=== PATIENT | male | born 1930 | race Caucasian/White ===

== ENCOUNTER 2016-08-06 09:53 | Inpatient (IN) | payer MEDICARE, OTHER ==
[~2016-08-06] VITALS: Ht 180.3 cm; Wt 61.0 kg
[~2016-08-06 09:53] MED LIST: ASPI325T4 PO; ATOR10TA60 PO; BUDE10.2 IH; CARV3.122 PO; DOCU100C5 PO; DUTA0.5C PO; ERGO500012 PO; FINA5TAB4 PO; FLUT16SP; HYDR-2678 PO; IPRA3AMP NEB; LEVO500T38 PO; LISI2.5T PO; MULT-658 PO; OMEG1CAP38 PO; PRED-220 PO; PROAIR HFA8.5 GM INH
--- NOTE | 2016-08-06 10:26 | PHYS DOC ---
Past Medical History Past Medical History: COPD, High Cholesterol, Hypertension, IN, Other Additional Past Medical Histor: emphysema Past Surgical History: Other Additional Past Surgical Histo: hernia repair, left lobectomy Alcohol Use: Sober Drug Use: None Adult General Chief Complaint Chief Complaint: DYSPNEA/RESPIRATOY DISTRESS HPI HPI Patient is a 86 year old male who presents with breath last 2 days. He has a dry hacking cough and occasionally has white sputum. He states he did have a fever this morning when the EMS team picked him up. He states he's been using his albuterol at home and oxygen without any success. He denies any chest pain or abdominal pain. States he still smoking. He is usually on 3 L of oxygen overnight he went up to 5 L. Review of Systems Review of Systems Constitutional: Denies fever or chills [] Eyes: Denies change in visual acuity, redness, or eye pain [] HENT: Denies nasal congestion or sore throat [] Respiratory: Postivie for cough and shortness of breath [] Cardiovascular: No additional information not addressed in HPI [] GI: Denies abdominal pain, nausea, vomiting, bloody stools or diarrhea [] : Denies dysuria or hematuria [] Musculoskeletal: Denies back pain or joint pain [] Integument: Denies rash or skin lesions [] Neurologic: Denies headache, focal weakness or sensory changes [] Endocrine: Denies polyuria or polydipsia [] Current Medications Current Medications Current Medications Medications (Trade) Dose Ordered Sig/[place] Start Time Stop Time Status Last Admin Dose Admin Levofloxacin/ Dextrose 150 ml @ 100 mls/hr 1X ONCE 08/06/16 11:30 08/06/16 12:59 Levofloxacin/ Dextrose 1 each 1 each PRN DAILY PRN 08/06/16 11:15 UNV Lorazepam (Ativan) 0.5 mg 1X ONCE 08/06/16 11:30 08/06/16 11:31 DC 08/06/16 11:25 0.5 MG Methylprednisolone Sodium Succinate 125 mg 125 mg 1X ONCE 08/06/16 11:15 08/06/16 11:16 DC 08/06/16 11:30 125 MG Piperacillin Sod/ Tazobactam Sod (Zosyn Per Pharmacy) 1 each PRN DAILY PRN 08/06/16 11:15 UNV Piperacillin Sod/ Tazobactam Sod 4.5 gm/Sodium Chloride 100 ml @ 200 mls/hr 1X ONCE 08/06/16 11:30 08/06/16 11:59 DC 08/06/16 11:44 200 MLS/HR Vancomycin HCl (Vanco Per Pharmacy) 1 each PRN DAILY PRN 08/06/16 11:30 Vancomycin HCl/ Sodium Chloride (Iv Sodium Chloride 0.9% 250ml) 250 ml @ 166.667 mls/hr 1X ONCE 08/06/16 11:15 08/06/16 11:23 DC Vancomycin HCl/ Sodium Chloride (Iv Sodium Chloride 0.9% 500ml Bag) 500 ml @ 250 mls/hr 1X ONCE 08/06/16 11:30 08/06/16 13:29 Allergies Allergies Allergies Coded Allergies Type Severity Reaction Last Updated Verified morphine Adverse Reaction Intermediate hallucinations 09/26/15 Yes Physical Exam Physical Exam Constitutional: Well developed, well nourished, no acute distress, non-toxic appearance. [] HENT: Normocephalic, atraumatic, bilateral external ears normal, oropharynx moist, no oral exudates, nose normal. [] Eyes: PERRLA, EOMI, conjunctiva normal, no discharge. [] Neck: Normal range of motion, no tenderness, supple, no stridor. [] Cardiovascular:Heart rate regular rhythm, no murmur [] Lungs & Thorax: Decreased breath sounds bilaterally, tacpneic [] Abdomen: Bowel sounds normal, soft, no tenderness, no masses, no pulsatile masses. [] Skin: Warm, dry, no erythema, no rash. [] Back: No tenderness, no CVA tenderness. [] Extremities: No tenderness, no cyanosis, no clubbing, ROM intact, no edema. [] Neurologic: Alert and oriented X 3, normal motor function, normal sensory function, no focal deficits noted. [] Psychologic: Affect normal, judgement normal, mood normal. [] Current Patient Data Vital Signs Vital Signs Date Time Temp Pulse Resp B/P Pulse Ox O2 Delivery O2 Flow Rate FiO2 08/06/16 10:40 91 08/06/16 10:03 98.2 109 24 160/68 Nasal Cannula 3 98.2 Lab Values Laboratory Tests Test 08/06/16 10:20 08/06/16 10:48 White Blood Count 29.3x10^3/uL (4.0-11.0) H Red Blood Count 3.27x10^6/uL (4.30-5.70) L Hemoglobin 9.8g/dL (13.0-17.5) L Hematocrit 29.9% (39.0-53.0) L Mean Corpuscular Volume 91fL (79-100) Mean Corpuscular Hemoglobin 30pg (25-35) Mean Corpuscular Hemoglobin Concent 33g/dL (31-37) Red Cell Distribution Width 16.6% (11.5-14.5) H Platelet Count 281x10^3/uL (140-400) Neutrophils (%) (Auto) 91% (31-73) H Lymphocytes (%) (Auto) 4% (24-48) L Monocytes (%) (Auto) 5% (0-9) Eosinophils (%) (Auto) 0% (0-3) Basophils (%) (Auto) 0% (0-3) Neutrophils # (Auto) 26.6x10^3uL (1.8-7.7) H Lymphocytes # (Auto) 1.1x10^3/uL (1.0-4.8) Monocytes # (Auto) 1.4x10^3/uL (0.0-1.1) H Eosinophils # (Auto) 0.0x10^3/uL (0.0-0.7) Basophils # (Auto) 0.1x10^3/uL (0.0-0.2) Segmented Neutrophils % 82% (35-66) H Band Neutrophils % 11% (0-9) H Lymphocytes % 3% (24-48) L Monocytes % 4% (0-10) Platelet Estimate Adequate (ADEQUATE) Anisocytosis Slight Ovalocytes Few Prothrombin Time 14.4SEC (11.7-14.0) H Prothrombin Time INR 1.2 (0.8-1.1) H PTT 31SEC (24-38) Sodium Level 144mmol/L (136-145) Potassium Level 3.5mmol/L (3.5-5.1) Chloride Level 107mmol/L (98-107) Carbon Dioxide Level 30mmol/L (21-32) Anion Gap 7 (6-14) Blood Urea Nitrogen 21mg/dL (8-26) Creatinine 0.8mg/dL (0.7-1.3) Estimated GFR (Cockcroft-Gault) 91.9 Glucose Level 113mg/dL (70-99) H Lactic Acid Level 3.6mmol/L (0.4-2.0) H Calcium Level 9.0mg/dL (8.5-10.1) Total Bilirubin 0.5mg/dL (0.2-1.0) Direct Bilirubin 0.2mg/dL (0.0-0.2) Aspartate Amino Transferase (AST) 13U/L (15-37) L Alanine Aminotransferase (ALT) 16U/L (16-63) Alkaline Phosphatase 59U/L (46-116) Creatine Kinase 18U/L (39-308) L Creatine Kinase MB (Mass) 1.7ng/mL (0.0-3.6) Creatine Kinase MB Relative Index % (0-4) Troponin I Quantitative < 0.017ng/mL (0.000-0.055) XL-Gzn-U-Type Natriuretic Peptide 873pg/mL (0-449) H Total Protein 6.5g/dL (6.4-8.2) Albumin 2.6g/dL (3.4-5.0) L Influenza Type A Antigen Negative (NEGATIVE) Influenza Type B Antigen Negative (NEGATIVE) Laboratory Tests 08/06/16 10:20 Laboratory Tests 08/06/16 10:20 EKG EKG EKG shows sinus rhythm rate [address] elevations, QTC 3 and 46 ms, right axis, as interpreted by me. Radiology/Procedures Radiology/Procedures [facility] [address] [place], [place] [id number] IMAGING REPORT Signed PATIENT: BIJAL OLSON ACCOUNT: [id number] : 1930 LOCATION: ER AGE: 86 SEX: M EXAM STATUS: PRE ER ORD. PHYSICIAN: NITA LEWIS MD REASON: soa PROCEDURE: PORTABLE CHEST 1V Indication shortness of air. AP views of the chest were obtained and are compared to an examination 06/30/2016. Background changes compatible with emphysema are seen. There is now an infiltrate, compatible with superimposed pneumonia, in the right lower lobe. A focal infiltrate in the left lung is not seen. The heart and pulmonary vessels are within normal limits. There is no significant pleural fluid or pneumothorax. There are healed bilateral rib fractures. IMPRESSION: Infiltrate, compatible with pneumonia, in the right lower lobe DICTATED and SIGNED BY: LUCÍA WINTERS MD DATE: 08/06/16 1100 CC: NITA LEWIS MD; Meera GRIMES MD ~ Impressions: Shortness of breath Healthcare acquired pneumonia Course & Med Decision Making Course & Med Decision Making Pertinent Labs and Imaging studies reviewed. (See chart for details) She is a DNR. He is requesting palliative care consultation. He has pneumonia on chest x-ray at this point is considered health-care acquired since he was just hospitalized in June. Will start Levaquin thank Zosyn and admitted to Dr. Grimes. We have tried BiPAP at this point is not tolerating it so back to 5 L nasal cannula keep his O2 sats above 92%. Patient and daughter is agreeable plans in stable condition at this time. Dragon Disclaimer Dragon Disclaimer This electronic medical record was generated, in whole or in part, using a voice recognition dictation system. Departure Departure Impression: Primary Impression: Community acquired bacterial pneumonia Disposition: ADMITTED INPATIENT Admitting Physician: Darek Grimes Condition: GUARDED Referrals: Meera GRIMES MD (PCP) NITA LEWIS MD Aug 06, 2016 10:26
[2016-08-06 10:42] LABS: BASO # 0.1 x10^3/uL (0.0-0.2); BASO % 0 % (0-3); EOS % 0 % (0-3); HEMATOCRIT 29.9 % (39.0-53.0); HEMOGLOBIN 9.8 g/dL (13.0-17.5); LYMPH # 1.1 x10^3/uL (1.0-4.8); LYMPH % 4 % (24-48); MEAN CORPUSCULAR HEMOGLOBIN 30 pg (25-35); MEAN CORPUSCULAR HGB CONC 33 g/dL (31-37); MEAN CORPUSCULAR VOLUME 91 fL (79-100); MONO % 5 % (0-9); NEUT % 91 % (31-73); PLATELET COUNT 281 x10^3/uL (140-400); RED BLOOD COUNT 3.27 x10^6/uL (4.30-5.70); RED CELL DISTRIBUTION WIDTH 16.6 % (11.5-14.5); WHITE BLOOD COUNT 29.3 x10^3/uL (4.0-11.0)
[2016-08-06] MEDS ORDERED: METO50TA2 PO (10:45)
[2016-08-06] MEDS ORDERED: VIT1TABL34 PO (10:45)
[2016-08-06 10:49] LABS: CREATININE 0.8 mg/dL (0.7-1.3); GFR 91.9; POTASSIUM 3.5 mmol/L (3.5-5.1)
[2016-08-06 10:51] LABS: INR 1.2 (0.8-1.1); PROTHROMBIN TIME PATIENT 14.4 SEC (11.7-14.0)
[2016-08-06 10:55] LABS: ALBUMIN 2.6 g/dL (3.4-5.0); DIRECT BILIRUBIN 0.2 mg/dL (0.0-0.2); TOTAL BILIRUBIN 0.5 mg/dL (0.2-1.0); TOTAL PROTEIN 6.5 g/dL (6.4-8.2)
[2016-08-06 11:03] LABS: CKMB MASS 1.7 ng/mL (0.0-3.6); CREATINE KINASE 18 U/L (39-308)
--- NOTE | 2016-08-06 11:03 | RAD ---
Indication shortness of air. AP views of the chest were obtained and are compared to an examination 06/30/2016. Background changes compatible with emphysema are seen. There is now an infiltrate, compatible with superimposed pneumonia, in the right lower lobe. A focal infiltrate in the left lung is not seen. The heart and pulmonary vessels are within normal limits. There is no significant pleural fluid or pneumothorax. There are healed bilateral rib fractures. IMPRESSION: Infiltrate, compatible with pneumonia, in the right lower lobe
[2016-08-06] MEDS ORDERED: PIP/TAZO PER PHARMACY MC PRN (11:15)
[2016-08-06] MEDS ORDERED: methylPREDNISolone SOD SUCC PF 125 MG/2 ML VIAL. IV ONE (11:15)
[2016-08-06] MEDS ORDERED: VANCOMYCIN 1.25 GM in IV NORMAL SALINE 250ML 250 ML IV ONE (11:15)
[2016-08-06] MEDS ORDERED: LEVOFLOXACIN PER PHARMACY MC PRN (11:15)
[2016-08-06 11:18] LABS: OBC FLU VALID
--- NOTE | 2016-08-06 11:19 | EKG ---
[facility] [address] [place] [address] Test Date: 2016-08-06 Test Time: 09:58:19 Pat Name: BIJAL OLSON Department: Room: Gender: M Building Wrecker: : 1930 Requested By: NITA LEWIS Order Number: [id number] Reading MD: Joceline Ford Measurements Intervals [place] Rate: 98 P: 90 [place]: 118 QRS: 102 QRSD: 98 T: 43 QT: 346 QTc: 444 Interpretive Statements SINUS RHYTHM ATRIAL PREMATURE COMPLEX(ES) RIGHTWARD AXIS QRS(T) CONTOUR ABNORMALITY CONSISTENT WITH ANTEROSEPTAL INFARCT PROBABLY OLD Electronically Signed On 08-08-2016 20:12:42 GUN NUMBERER by Joceline Ford
[2016-08-06] MEDS ORDERED: LORAZEPAM 2 MG/ML VIAL IV ONE (11:30)
[2016-08-06] MEDS ORDERED: VANCOMYCIN 1.75 GM in IV NORMAL SALINE 500ML BAG 500 ML IV ONE (11:30)
[2016-08-06] MEDS ORDERED: PIPERACILLIN/TAZOBACTAM 4.5 GM in IV NORMAL SALINE 100ML 100 ML IV ONE (11:30)
[2016-08-06 11:48] LABS: ANISOCYTOSIS SLIGHT; OVALOCYTES FEW; PLT ESTIMATE ADEQUATE (ADEQUATE)
[2016-08-06 12:03] LABS: BILIRUBIN,URINE NEGATIVE (NEG); GLUCOSE,URINE NEGATIVE (NEG); NITRITE,URINE NEGATIVE (NEG); PH,URINE 5.5; PROTEIN,URINE NEGATIVE (NEG-TRACE); UROBILINOGEN,URINE 0.2 mg/dL (0.2 mg/dL)
[2016-08-06 12:10] LABS: BACTERIA,URINE FEW /HPF (0-FEW); RBC,URINE OCC /HPF (0-2); SQUAMOUS EPITHELIAL CELL,UR FEW /LPF
[2016-08-06 14:34] VITALS: BP 119/50
[2016-08-06] MEDS: HYDROCODONE/APAP 5/325MG TABLET. PO PRN ×2 (14:56→23:10)
[2016-08-06] MEDS: VANCOMYCIN PER PHARMACY MC PRN (15:29)
[2016-08-06] MEDS: IPRATRPIUM/ALBUTEROL 0.5/2.5MG 3 ML NEBU. NEB SCH ×2 (16:13→20:25)
[2016-08-06] MEDS: PIPERACILLIN/TAZOBACTAM 4.5 GM in IV NORMAL SALINE 100ML 100 ML IV SCH ×2 (17:02→23:10)
[2016-08-06] MEDS ORDERED: MAGNESIUM HYDROXIDE 2,400 MG/30 ML ORAL.SUSP. PO PRN (18:00)
[2016-08-06] MEDS ORDERED: DEXTROSE 50% 25 GM / 50ML DISP.SYRIN. IV PRN (18:00)
--- NOTE | 2016-08-06 18:01 | PDOC ---
Provider Note Provider Note H&P dictated # [id number] RLL pneumonia causing acute respiratory failure which responded to Bipap initially emphysema with ongoing tobacco use deconditioning from recent hospitalization recent PAF DNR/DNI Meera RODRIGUEZ MD Aug 06, 2016 18:00
--- NOTE | 2016-08-06 18:25 | HP ---
ADMIT DATE: 08/06/2016 ADMISSION DIAGNOSIS: Healthcare-associated pneumonia. HISTORY OF PRESENT ILLNESS: This is an 86-year-old white male who has recently been hospitalized, was released home, improved, came in the office for followup, but then developed cough and cold symptoms. He was seen again in the office and evaluated, but since that time, he has worsened and developed a fever and presented to the Emergency Room, was found to have an infiltrate on his x-ray, a white count of 29,000 and has been admitted on IV antibiotics. He was also placed on BiPAP initially, but since that time, he has been alert. He expresses his desire to not be intubated or coded. PAST MEDICAL HISTORY: Significant for COPD, hyperlipidemia, hypertension, coronary artery disease, emphysema. PAST SURGICAL HISTORY: Include hernia repair and a left lobectomy. SOCIAL HISTORY: Positive for ongoing tobacco use for which he has no desire to quit. Negative for alcohol. FAMILY HISTORY: Noncontributory. His daughter helps assist with his care, but he is still independent in his ADLs and drives. He was alone in the office recently. ALLERGIES: HE HAS AN ADVERSE REACTIONS TO MORPHINE CAUSING HALLUCINATIONS. HOME MEDICATIONS: Include albuterol ProAir type inhaler q. 6 hours p.r.n., aspirin 325 daily, atorvastatin 10 h.s., Symbicort 160/4.5 two puffs b.i.d., vitamin D 50,000 units weekly, finasteride 5 mg daily, fluticasone 1 spray each nostril daily, hydrocodone 5/325 one b.i.d. p.r.n. pain, DuoNeb nebulized q.i.d., lisinopril 2.5 mg daily, metoprolol 50 mg b.i.d., Centrum Silver vitamin daily, fish oil daily, PreserVision eye tablet daily. REVIEW OF SYSTEMS: He has oxygen at home that he wears generally at night. He had the progressive pulmonary symptoms of above. He has not had any chest pain or palpitations. HEENT: Negative for acute symptoms. No earache. No sore throat. No eye symptoms. He has glasses. GASTROINTESTINAL: Negative for nausea, vomiting, diarrhea. GENITOURINARY: He has been urinating. MUSCULOSKELETAL: No falls. He has not quite recovered his strength from his last admission though, but he was able to drive himself to the office earlier this week. NEUROLOGIC: Intact. Mentally he is alert and oriented and not at all confused, on nasal cannula oxygen. LABORATORY DATA: Show white count 29.3, hemoglobin of 9.8, hematocrit 29.9, platelets of 281, 82 segs, 11 bands. Chemistries, his glucose is 113. Otherwise are unremarkable with the exception of a low albumin of 2.6. His BNP is a little high at 873. His cardiac enzymes are normal. Lactic acid is high at 3.6. Urinalysis is unremarkable with a small amount of leukocyte esterase, marked amount of mucus, few squamous epithelial cells. INR is 1.2. Flu A and B antigens are negative. IMAGING STUDIES: Chest x-ray shows an infiltrate compatible with pneumonia in the right lower lobe, old healed rib fractures are noted. Background changes of emphysema are noted. ASSESSMENT: 1. Pneumonia with fever at home and acute respiratory failure, requiring BiPAP in the Emergency Room. 2. Emphysema with COPD. 3. Paroxysmal atrial fib, which he was in in the office recently, his current EKG is showing sinus rhythm though. PLAN: He is admitted, IV antibiotics. Continue his home meds including his aspirin, metoprolol and watch his heart on the monitor. He has requested a Palliative care consult, we will consult them to set goals but it appears his main goal is to be a DNR/DNI and to avoid going to a nursing facility. W Keri RODRIGUEZ MD DR: MICHAEL/markos JOB#: [id number] / [id number]
[2016-08-06 19:00] VITALS: BP 92/42
[2016-08-06] MEDS: BUDESONIDE 0.5 MG/2 ML NEBU NEB SCH (20:24)
[2016-08-06] MEDS: METOPROLOL TART IMMED RELEASE 50 MG TABLET PO SCH (21:00)
[2016-08-06] MEDS: ATORVASTATIN CALCIUM 10 MG TABLET. PO SCH (21:09)
[2016-08-06] MEDS: SENNOSIDES/DOCUSATE 8.6/50MG TABLET. PO SCH (21:09)
[2016-08-06] MEDS: LORAZEPAM 0.5 MG TABLET. PO PRN (21:09)
[2016-08-06] MEDS: ENOXAPARIN 40 MG/0.4 ML DISP.SYRIN. SQ SCH (21:11)
[2016-08-06 23:13] VITALS: BP 101/51
[2016-08-07] MEDS ORDERED: ALBUTEROL SULFATE 2.5 MG/3 ML NEBU. NEB PRN (00:15)
[2016-08-07 03:39] VITALS: BP 120/53
[2016-08-07 04:54] LABS: BASO % 0 % (0-3); EOS % 0 % (0-3); HEMATOCRIT 24.4 % (39.0-53.0); LYMPH # 0.5 x10^3/uL (1.0-4.8); LYMPH % 3 % (24-48); MEAN CORPUSCULAR HEMOGLOBIN 30 pg (25-35); MEAN CORPUSCULAR HGB CONC 33 g/dL (31-37); MEAN CORPUSCULAR VOLUME 92 fL (79-100); MONO % 2 % (0-9); NEUT % 96 % (31-73); PLATELET COUNT 174 x10^3/uL (140-400); RED BLOOD COUNT 2.65 x10^6/uL (4.30-5.70); RED CELL DISTRIBUTION WIDTH 17.2 % (11.5-14.5); WHITE BLOOD COUNT 20.2 x10^3/uL (4.0-11.0)
[2016-08-07 05:28] LABS: ALBUMIN/GLOBULIN RATIO 0.6 (1.0-1.7); CALCIUM 8.3 mg/dL (8.5-10.1); POTASSIUM 3.5 mmol/L (3.5-5.1); TOTAL BILIRUBIN 0.5 mg/dL (0.2-1.0); TOTAL PROTEIN 5.4 g/dL (6.4-8.2)
[2016-08-07] MEDS: PIPERACILLIN/TAZOBACTAM 4.5 GM in IV NORMAL SALINE 100ML 100 ML IV SCH ×3 (05:33→17:41)
[2016-08-07] MEDS: IPRATRPIUM/ALBUTEROL 0.5/2.5MG 3 ML NEBU. NEB SCH ×4 (07:40→18:08)
[2016-08-07] MEDS: BUDESONIDE 0.5 MG/2 ML NEBU NEB SCH ×2 (07:40→15:47)
[2016-08-07 07:45] VITALS: BP 118/56
[2016-08-07] MEDS: INSULIN ASPART 300 UNITS/3 ML INSULN.PEN SQ SCH ×3 (08:00→17:12)
[2016-08-07] MEDS: OMEGA-3 FATTY ACIDS/FISH OIL 1,000 MG CAPSULE. PO SCH (08:12)
[2016-08-07] MEDS: ASPIRIN 325 MG TABLET PO SCH (08:12)
[2016-08-07] MEDS: MULTIVITAMIN EYE FORMULA CAPSULE. PO SCH (08:13)
[2016-08-07] MEDS: FINASTERIDE 5 MG TABLET PO SCH (08:13)
[2016-08-07] MEDS: MULTIVITAMIN with MINERAL TABLET. PO SCH (08:13)
[2016-08-07] MEDS: METOPROLOL TART IMMED RELEASE 50 MG TABLET PO SCH ×2 (08:13→20:30)
[2016-08-07] MEDS: LISINOPRIL 2.5 MG TABLET PO SCH (08:14)
[2016-08-07] MEDS: SENNOSIDES/DOCUSATE 8.6/50MG TABLET. PO SCH ×2 (08:14→20:25)
[2016-08-07] MEDS: FLUTICASONE 50MCG/NASAL SPRAY 16GM BOTTLE. NS SCH (08:19)
[2016-08-07 11:00] VITALS: BP 118/56
--- NOTE | 2016-08-07 14:18 | PDOC ---
SUBJECTIVE Subjective Feels that he is doing better. Still with cough. Still productive. Eating and drinking okay. Going to the bathroom okay. Some difficulty with sleep last night per nursing. OBJECTIVE Vital Signs Vital Signs Date Time Temp Pulse Resp B/P Pulse Ox O2 Delivery O2 Flow Rate FiO2 08/07/16 11:02 98 Nasal Cannula 2.0 08/07/16 08:14 77 118/56 08/07/16 08:13 77 118/56 08/07/16 08:10 Nasal Cannula 3.0 08/07/16 07:45 98.0 77 16 118/56 98 Nasal Cannula 2.0 98.0 08/07/16 07:42 95 Room Air 08/07/16 03:39 96.8 70 18 120/53 98 Nasal Cannula 2.0 96.8 08/07/16 00:47 Nasal Cannula 2.0 08/07/16 00:10 22 Nasal Cannula 3.0 08/06/16 23:13 99.3 91 20 101/51 97 Nasal Cannula 2.0 99.3 08/06/16 23:10 22 Room Air 08/06/16 21:00 89 92/42 08/06/16 20:45 Nasal Cannula 3.0 08/06/16 20:28 Nasal Cannula 2.0 08/06/16 20:27 Nasal Cannula 2.0 08/06/16 19:00 97.0 95 20 92/42 97 Nasal Cannula 2.0 97.0 08/06/16 16:17 98 Nasal Cannula 2.0 08/06/16 15:28 Nasal Cannula 3.0 08/06/16 14:56 Nasal Cannula 08/06/16 14:34 99.4 106 18 119/50 94 Nasal Cannula 2.0 99.4 I & O Intake and Output 08/07/16 07:00 Intake Total 350 ml Output Total 125 ml Balance 225 ml Intake Oral 50 ml IV Total 300 ml Output Urine Total 125 ml # Voids 4 PHYSICAL EXAM Physical Exam General: No acute distress. Sitting in the chair without any oxygen at present Mental status: Alert and oriented. Chest: Significantly decreased air movement throughout. CV: Normal rate. Regular rhythm. No murmur. Abdomen: Normal bowel sounds. Soft. Not distended. No tenderness. No guarding. No rebound. Extremities: Trace bilateral lower extremity edema ASSESSMENT/PLAN Assessment/Plan 1. RLL pneumonia causing acute respiratory failure which responded to Bipap initially: Doing better. Continue to monitor today IV antibiotics. 2. emphysema with ongoing tobacco use: Breathing treatments. 3. deconditioning from recent hospitalization: Physical therapy evaluate and treat 4. recent PAF: Sounds in sinus rhythm at present. 5. CODE STATUS, DNR/DNI: 6. Disposition: Lives at home with daughter. We'll see how he does over the next day or 2. Problems: COMMENT Lab Laboratory Tests Test 08/07/16 04:00 08/07/16 12:21 White Blood Count 20.2x10^3/uL (4.0-11.0) Red Blood Count 2.65x10^6/uL (4.30-5.70) Hemoglobin 8.0g/dL (13.0-17.5) Hematocrit 24.4% (39.0-53.0) Mean Corpuscular Volume 92fL (79-100) Mean Corpuscular Hemoglobin 30pg (25-35) Mean Corpuscular Hemoglobin Concent 33g/dL (31-37) Red Cell Distribution Width 17.2% (11.5-14.5) Platelet Count 174x10^3/uL (140-400) Neutrophils (%) (Auto) 96% (31-73) Lymphocytes (%) (Auto) 3% (24-48) Monocytes (%) (Auto) 2% (0-9) Eosinophils (%) (Auto) 0% (0-3) Basophils (%) (Auto) 0% (0-3) Neutrophils # (Auto) 19.3x10^3uL (1.8-7.7) Lymphocytes # (Auto) 0.5x10^3/uL (1.0-4.8) Monocytes # (Auto) 0.4x10^3/uL (0.0-1.1) Eosinophils # (Auto) 0.0x10^3/uL (0.0-0.7) Basophils # (Auto) 0.0x10^3/uL (0.0-0.2) Sodium Level 144mmol/L (136-145) Potassium Level 3.5mmol/L (3.5-5.1) Chloride Level 108mmol/L (98-107) Carbon Dioxide Level 30mmol/L (21-32) Anion Gap 6 (6-14) Blood Urea Nitrogen 24mg/dL (8-26) Creatinine 1.0mg/dL (0.7-1.3) Estimated GFR (Cockcroft-Gault) 71.0 BUN/Creatinine Ratio 24 (6-20) Glucose Level 125mg/dL (70-99) Calcium Level 8.3mg/dL (8.5-10.1) Total Bilirubin 0.5mg/dL (0.2-1.0) Aspartate Amino Transf (AST/SGOT) 12U/L (15-37) Alanine Aminotransferase (ALT/SGPT) 15U/L (16-63) Alkaline Phosphatase 46U/L (46-116) Total Protein 5.4g/dL (6.4-8.2) Albumin 2.0g/dL (3.4-5.0) Albumin/Globulin Ratio 0.6 (1.0-1.7) Glucose (Fingerstick) 103mg/dL (70-99) PEARL MONTOYA MD Aug 07, 2016 14:18
[2016-08-07] MEDS: LORAZEPAM 0.5 MG TABLET. PO PRN (15:23)
[2016-08-07] MEDS: VANCOMYCIN 1 GM in IV NORMAL SALINE 250ML 250 ML IV SCH (15:23)
[2016-08-07 15:30] VITALS: BP 135/67
[2016-08-07 19:00] VITALS: BP 124/57
[2016-08-07] MEDS: ZOLPIDEM 5 MG TABLET. PO PRN (20:25)
[2016-08-07] MEDS: ENOXAPARIN 40 MG/0.4 ML DISP.SYRIN. SQ SCH (20:25)
[2016-08-07] MEDS: ATORVASTATIN CALCIUM 10 MG TABLET. PO SCH (20:25)
[2016-08-07 22:33] VITALS: BP 131/78
[2016-08-08] MEDS: PIPERACILLIN/TAZOBACTAM 4.5 GM in IV NORMAL SALINE 100ML 100 ML IV SCH ×5 (00:32→23:24)
[2016-08-08 02:52] VITALS: BP 127/72
[2016-08-08 08:00] VITALS: BP 124/61
[2016-08-08] MEDS: INSULIN ASPART 300 UNITS/3 ML INSULN.PEN SQ SCH ×3 (08:00→17:00)
[2016-08-08] MEDS: MULTIVITAMIN with MINERAL TABLET. PO SCH (08:19)
[2016-08-08] MEDS: SENNOSIDES/DOCUSATE 8.6/50MG TABLET. PO SCH ×2 (08:19→20:49)
[2016-08-08] MEDS: OMEGA-3 FATTY ACIDS/FISH OIL 1,000 MG CAPSULE. PO SCH (08:19)
[2016-08-08] MEDS: LISINOPRIL 2.5 MG TABLET PO SCH (08:19)
[2016-08-08] MEDS: FINASTERIDE 5 MG TABLET PO SCH (08:20)
[2016-08-08] MEDS: METOPROLOL TART IMMED RELEASE 50 MG TABLET PO SCH ×2 (08:20→20:49)
[2016-08-08] MEDS: ASPIRIN 325 MG TABLET PO SCH (08:20)
[2016-08-08] MEDS: MULTIVITAMIN EYE FORMULA CAPSULE. PO SCH (08:20)
[2016-08-08] MEDS: FLUTICASONE 50MCG/NASAL SPRAY 16GM BOTTLE. NS SCH (08:21)
[2016-08-08] MEDS: BUDESONIDE 0.5 MG/2 ML NEBU NEB SCH ×2 (09:25→15:51)
[2016-08-08] MEDS: IPRATRPIUM/ALBUTEROL 0.5/2.5MG 3 ML NEBU. NEB SCH ×4 (09:25→18:34)
[2016-08-08 11:15] VITALS: BP 93/49
--- NOTE | 2016-08-08 14:19 | PDOC ---
SUBJECTIVE Subjective Feels like his breathing is doing better. Nursing notes that he doesn't eat very much. He hasn't been ambulating too much. OBJECTIVE Vital Signs Vital Signs Date Time Temp Pulse Resp B/P Pulse Ox O2 Delivery O2 Flow Rate FiO2 08/08/16 12:03 Nasal Cannula 2.0 08/08/16 11:15 97.9 81 20 93/49 95 Room Air 97.9 08/08/16 09:30 100 Nasal Cannula 2.0 08/08/16 09:27 100 Nasal Cannula 2.0 08/08/16 08:20 98 127/72 08/08/16 08:19 98 127/72 08/08/16 08:00 97.7 183 20 124/61 98 97.7 08/08/16 07:30 Nasal Cannula 3.0 08/08/16 02:52 98.0 98 20 127/72 95 Nasal Cannula 2.0 98.0 08/07/16 22:33 98.5 104 21 131/78 94 Nasal Cannula 2.0 98.5 08/07/16 20:30 88 136/64 08/07/16 20:00 Nasal Cannula 2.0 08/07/16 19:00 98.3 110 20 124/57 95 Nasal Cannula 2.0 98.3 08/07/16 18:09 97 Nasal Cannula 2.0 08/07/16 15:48 Nasal Cannula 2.0 08/07/16 15:30 97.6 80 18 135/67 94 Nasal Cannula 2.0 97.6 I & O Intake and Output 08/08/16 07:00 Intake Total 880 ml Output Total 200 ml Balance 680 ml Intake Oral 880 ml Output Urine Total 200 ml # Voids 2 PHYSICAL EXAM Physical Exam General: No acute distress. Nasal cannula oxygen on. Mental status: Alert and oriented. Chest: Significantly decreased air movement throughout. CV: Normal rate. Slightly irregular rhythm. No murmur. Abdomen: Normal bowel sounds. Soft. Not distended. No tenderness. No guarding. No rebound. Extremities: Trace bilateral lower extremity edema ASSESSMENT/PLAN Assessment/Plan 1. RLL pneumonia causing acute respiratory failure which responded to Bipap initially: Doing better. Continue to monitor today. IV antibiotics. 2. emphysema with ongoing tobacco use: Breathing treatments. 3. deconditioning from recent hospitalization: Physical therapy evaluate and treat 4. recent PAF: Sounds in sinus rhythm at present. 5. Anemia: Recheck labs with iron studies. Transfuse if low to help with his respiratory status. 5. CODE STATUS, DNR/DNI: 6. Disposition: Lives at home with daughter. We'll see how he does over the next day or 2. Problems: COMMENT Lab Laboratory Tests Test 08/07/16 17:11 08/07/16 20:42 08/08/16 08:27 08/08/16 11:29 Glucose (Fingerstick) 94mg/dL (70-99) 87mg/dL (70-99) 75mg/dL (70-99) 80mg/dL (70-99) PEARL MONTOYA MD Aug 08, 2016 14:19
[2016-08-08 15:00] VITALS: BP 118/60
[2016-08-08] MEDS: VANCOMYCIN 1 GM in IV NORMAL SALINE 250ML 250 ML IV SCH (15:10)
[2016-08-08 15:19] LABS: BASO # 0.1 x10^3/uL (0.0-0.2); BASO % 1 % (0-3); EOS % 0 % (0-3); HEMOGLOBIN 8.4 g/dL (13.0-17.5); LYMPH # 1.7 x10^3/uL (1.0-4.8); LYMPH % 15 % (24-48); MEAN CORPUSCULAR HEMOGLOBIN 30 pg (25-35); MEAN CORPUSCULAR HGB CONC 32 g/dL (31-37); MEAN CORPUSCULAR VOLUME 93 fL (79-100); MONO % 7 % (0-9); NEUT % 78 % (31-73); PLATELET COUNT 192 x10^3/uL (140-400); RED BLOOD COUNT 2.79 x10^6/uL (4.30-5.70); RED CELL DISTRIBUTION WIDTH 17.2 % (11.5-14.5); RETIC COUNT 0.7 % (0.5-2.5)
[2016-08-08 15:26] LABS: % SAT IRON 28 % (15-34); IRON,SERUM 37 ug/dL (65-175)
[2016-08-08] MEDS: VANCOMYCIN PER PHARMACY MC PRN (15:57)
[2016-08-08 19:00] VITALS: BP 123/53
[2016-08-08] MEDS: ATORVASTATIN CALCIUM 10 MG TABLET. PO SCH (20:49)
[2016-08-08] MEDS: ZOLPIDEM 5 MG TABLET. PO PRN (20:50)
[2016-08-08] MEDS: ENOXAPARIN 40 MG/0.4 ML DISP.SYRIN. SQ SCH (20:51)
[2016-08-08 23:00] VITALS: BP 139/78
[2016-08-09 03:00] VITALS: BP 134/65
[2016-08-09] MEDS: VANCOMYCIN 1 GM in IV NORMAL SALINE 250ML 250 ML IV SCH ×2 (03:22→14:20)
[2016-08-09] MEDS: PIPERACILLIN/TAZOBACTAM 4.5 GM in IV NORMAL SALINE 100ML 100 ML IV SCH ×3 (05:28→17:26)
[2016-08-09 07:37] VITALS: BP 136/61
[2016-08-09] MEDS: IPRATRPIUM/ALBUTEROL 0.5/2.5MG 3 ML NEBU. NEB SCH ×4 (07:42→18:15)
[2016-08-09] MEDS: BUDESONIDE 0.5 MG/2 ML NEBU NEB SCH ×2 (07:43→18:15)
[2016-08-09] MEDS: INSULIN ASPART 300 UNITS/3 ML INSULN.PEN SQ SCH ×3 (07:55→17:00)
[2016-08-09] MEDS: FLUTICASONE 50MCG/NASAL SPRAY 16GM BOTTLE. NS SCH (08:09)
[2016-08-09] MEDS: ASPIRIN 325 MG TABLET PO SCH (08:11)
[2016-08-09] MEDS: LISINOPRIL 2.5 MG TABLET PO SCH (08:11)
[2016-08-09] MEDS: FINASTERIDE 5 MG TABLET PO SCH (08:11)
[2016-08-09] MEDS: MULTIVITAMIN EYE FORMULA CAPSULE. PO SCH (08:11)
[2016-08-09] MEDS: MULTIVITAMIN with MINERAL TABLET. PO SCH (08:11)
[2016-08-09] MEDS: SENNOSIDES/DOCUSATE 8.6/50MG TABLET. PO SCH ×2 (08:11→20:42)
[2016-08-09] MEDS: OMEGA-3 FATTY ACIDS/FISH OIL 1,000 MG CAPSULE. PO SCH (08:11)
[2016-08-09] MEDS: METOPROLOL TART IMMED RELEASE 50 MG TABLET PO SCH ×2 (08:12→20:43)
--- NOTE | 2016-08-09 09:23 | PDOC ---
PROGRESS NOTES Subjective Subjective Patient reports his breathing is better than at admission. Admits he is weak with any activity. Objective Objective Vital Signs Date Time Temp Pulse Resp B/P Pulse Ox O2 Delivery O2 Flow Rate FiO2 08/09/16 08:12 109 136/61 08/09/16 08:00 Nasal Cannula 3.0 08/09/16 07:46 100 08/09/16 07:37 98.0 18 98.0 Intake and Output 08/09/16 07:00 Intake Total 850 ml Output Total 450 ml Balance 400 ml Intake Oral 300 ml IV Total 550 ml Output Urine Total 450 ml # Voids 3 Physical Exam Abdomen: Normal bowel sounds, Soft, No tenderness Heart: Regular rate Extremities: No edema General: Alert, Oriented X3, No acute distress Lungs: Other (BS moderately decreased throughout, no wheezes heard) Assessment Assessment Problems Medical Problems: (1) Community acquired bacterial pneumonia Status: Acute (2) HAP (hospital-acquired pneumonia) Status: Acute Plan Plan of Care 1. Acute on chronic respiratory failure with healthcare-associated pneumonia and COPD - symptoms are improving, sats good on O2. Will add Solumedrol, continue triple abx tx with scheduled nebs and steroid nebs. 2. PAF - patient does have short episodes of tachycardia on telemetry but is asymptomatic. Had cardiac evaluation last month including echo with preserved EF and cardiac cath without significant CAD. Continue anticoagulation with ASA only due to his fall risk. 3. HTN - controlled, continue present meds. 4. UTI - mild with light growth of Staph species. Will be covered by the abx he is presently receiving. 5. deconditioning - patient had significant weakness when working with PT yesterday. Admits to this. Wants to go home with his daughter. Encouraged to continue with PT to regain some strength. Would be appropriate for fdc but patient and daughter feel they can handle his cre at home. Comment Review of Relevant I have reviewed the following items juan manuel (where applicable) has been applied. Labs Laboratory Tests Test 08/07/16 12:21 08/07/16 17:11 08/07/16 20:42 08/08/16 08:27 Glucose (Fingerstick) 103mg/dL (70-99) 94mg/dL (70-99) 87mg/dL (70-99) 75mg/dL (70-99) Test 08/08/16 11:29 08/08/16 14:34 08/08/16 16:46 08/08/16 21:02 Glucose (Fingerstick) 80mg/dL (70-99) 101mg/dL (70-99) 97mg/dL (70-99) White Blood Count 12.0x10^3/uL (4.0-11.0) Red Blood Count 2.79x10^6/uL (4.30-5.70) Hemoglobin 8.4g/dL (13.0-17.5) Hematocrit 26.0% (39.0-53.0) Mean Corpuscular Volume 93fL (79-100) Mean Corpuscular Hemoglobin 30pg (25-35) Mean Corpuscular Hemoglobin Concent 32g/dL (31-37) Red Cell Distribution Width 17.2% (11.5-14.5) Platelet Count 192x10^3/uL (140-400) Neutrophils (%) (Auto) 78% (31-73) Lymphocytes (%) (Auto) 15% (24-48) Monocytes (%) (Auto) 7% (0-9) Eosinophils (%) (Auto) 0% (0-3) Basophils (%) (Auto) 1% (0-3) Neutrophils # (Auto) 9.3x10^3uL (1.8-7.7) Lymphocytes # (Auto) 1.7x10^3/uL (1.0-4.8) Monocytes # (Auto) 0.8x10^3/uL (0.0-1.1) Eosinophils # (Auto) 0.0x10^3/uL (0.0-0.7) Basophils # (Auto) 0.1x10^3/uL (0.0-0.2) Reticulocyte Count (auto) 0.7% (0.5-2.5) Iron Level 37ug/dL (65-175) Total Iron Binding Capacity 131ug/dL (250-450) Iron Saturation 28% (15-34) Vancomycin Level Trough 11.0mcg/mL (10.0-20.0) Vancomycin Last Dose Date 08/07/16 Vancomycin Last Dose Time 1500 Laboratory Tests Test 08/08/16 11:29 08/08/16 14:34 08/08/16 16:46 08/08/16 21:02 Glucose (Fingerstick) 80mg/dL (70-99) 101mg/dL (70-99) 97mg/dL (70-99) White Blood Count 12.0x10^3/uL (4.0-11.0) Red Blood Count 2.79x10^6/uL (4.30-5.70) Hemoglobin 8.4g/dL (13.0-17.5) Hematocrit 26.0% (39.0-53.0) Mean Corpuscular Volume 93fL (79-100) Mean Corpuscular Hemoglobin 30pg (25-35) Mean Corpuscular Hemoglobin Concent 32g/dL (31-37) Red Cell Distribution Width 17.2% (11.5-14.5) Platelet Count 192x10^3/uL (140-400) Neutrophils (%) (Auto) 78% (31-73) Lymphocytes (%) (Auto) 15% (24-48) Monocytes (%) (Auto) 7% (0-9) Eosinophils (%) (Auto) 0% (0-3) Basophils (%) (Auto) 1% (0-3) Neutrophils # (Auto) 9.3x10^3uL (1.8-7.7) Lymphocytes # (Auto) 1.7x10^3/uL (1.0-4.8) Monocytes # (Auto) 0.8x10^3/uL (0.0-1.1) Eosinophils # (Auto) 0.0x10^3/uL (0.0-0.7) Basophils # (Auto) 0.1x10^3/uL (0.0-0.2) Reticulocyte Count (auto) 0.7% (0.5-2.5) Iron Level 37ug/dL (65-175) Total Iron Binding Capacity 131ug/dL (250-450) Iron Saturation 28% (15-34) Vancomycin Level Trough 11.0mcg/mL (10.0-20.0) Vancomycin Last Dose Date 08/07/16 Vancomycin Last Dose Time 1500 Microbiology 08/06/16 Blood Culture - Preliminary, Resulted NO GROWTH AFTER 2 DAYS 08/06/16 Urine Culture - Preliminary, Resulted 08/06/16 Urine Culture Result 1 ([place]) - Preliminary, Resulted Medications Current Medications Lorazepam (Ativan) 0.5 mg 1X ONCE IV Last administered on 08/06/16 11:25; Start 08/06/16 at 11:30; Stop 08/06/16 at 11:31; Status DC Methylprednisolone Sodium Succinate 125 mg 125 mg 1X ONCE IV Last administered on 08/06/16 11:30; Start 08/06/16 at 11:15; Stop 08/06/16 at 11:16 ; Status DC Vancomycin HCl/ Sodium Chloride (Iv Sodium Chloride 0.9% 250ml) 250 ml @ 166.667 mls/hr 1X ONCE IV ; Start 08/06/16 at 11:15; Stop 08/06/16 at 12:44; Status Cancel Piperacillin Sod/ Tazobactam Sod (Zosyn Per Pharmacy) 1 each PRN DAILY PRN MC SEE COMMENTS; Start 08/06/16 at 11:15 Levofloxacin/ Dextrose 1 each 1 each PRN DAILY PRN MC SEE COMMENTS; Start 08/06 at 11:15 Levofloxacin/ Dextrose 150 ml @ 100 mls/hr 1X ONCE IV Last administered on 13:09; Start 08/06/16 at 11:30; Stop 08/06/16 at 12:59; Status DC Piperacillin Sod/ Tazobactam Sod 4.5 gm/Sodium Chloride 100 ml @ 200 mls/hr 1X ONCE IV Last administered on 08/06/16 11:44; Start 08/06/16 at 11:30; Stop 08/06/16 at 11:59; Status DC Vancomycin HCl/ Sodium Chloride (Iv Sodium Chloride 0.9% 500ml Bag) 500 ml @ 250 mls/hr 1X ONCE IV Last administered on 08/06/16 14:50; Start 08/06/16 at 11:30; Stop 08/06/16 at 13:29; Status DC Vancomycin HCl 1 each 1 each PRN DAILY PRN MC SEE COMMENTS Last administered on 08/08/16 15:57; Start 08/06/16 at 11:30 Piperacillin Sod/ Tazobactam Sod 4.5 gm/Sodium Chloride 100 ml @ 200 mls/hr Q6HRS IV Last administered on 08/09/16 05:28; Start 08/06/16 at 18:00 Levofloxacin/ Dextrose (LEVAQUIN 750mg PREMIX) 150 ml @ 100 mls/hr Q24H IV Last administered on 08/08/16 13:30; Start 08/07/16 at 13:00 Aspirin (Seble Aspirin) 325 mg DAILYWBKFT PO Last administered on 08/09/16 08: 11; Start 08/07/16 at 08:00 Atorvastatin Calcium (Lipitor) 10 mg QHS PO Last administered on 08/08/16 20: 49; Start 08/06/16 at 21:00 Ergocalciferol (Vitamin D2) 50,000 unit WEEKLY PO ; Start 08/13/16 at 09:00 Finasteride (Proscar) 5 mg DAILY PO Last administered on 08/09/16 08:11; Start 08/07/16 at 09:00 Fluticasone Propionate (Flonase) 1 spray DAILY NS Last administered on 08:09; Start 08/07/16 at 09:00 Acetaminophen/ Hydrocodone Bitart (Lortab 5/325) 1 tab BID PRN PO PAIN Last administered on 08/06/16 23:10; Start 08/06/16 at 14:00 Albuterol/ Ipratropium (Duoneb) 3 ml RTQID NEB Last administered on 08/09/16 07:42; Start 08/06/16 at 16:00 Lisinopril (Prinivil) 2.5 mg DAILY PO Last administered on 08/09/16 08:11; Start 08/07/16 at 09:00 Metoprolol Tartrate (Lopressor) 50 mg BID PO Last administered on 08/09/16 08: 12; Start 08/06/16 at 21:00 Multivitamins/ Calcium (Thera M Plus) 1 tab DAILY PO Last administered on 08:11; Start 08/07/16 at 09:00 Fish Oil (Fish Oil) 1,000 mg DAILY PO Last administered on 08/09/16 08:11; Start 08/07/16 at 09:00 Multivitamins/ Minerals (Ocuvite Lutein) 1 cap DAILY PO Last administered on 08:11; Start 08/07/16 at 09:00 Budesonide 0.5 mg 0.5 mg RTBID NEB Last administered on 08/09/16 07:43; Start 08/06/16 at 20:00 Vancomycin HCl/ Sodium Chloride (Iv Sodium Chloride 0.9% 250ml) 250 ml @ 250 mls/hr Q24H IV Last administered on 08/08/16 15:10; Start 08/07/16 at 15:00; Stop 08/08/16 at 16:06; Status DC Vancomycin HCl 1 each 1X ONCE MC Last administered on 08/08/16 14:30; Start 08/08/16 at 14:30; Stop 08/08/16 at 14:31; Status DC Acetaminophen/ Hydrocodone Bitart (Lortab 5/325) 1 tab PRN Q4HRS PRN PO MILD PAIN; Start 08/06/16 at 18:00 Senna/Docusate Sodium (Senna Plus) 1 tab BID PO Last administered on 08/09/16 08:11; Start 08/06/16 at 21:00 Magnesium Hydroxide (Milk Of Magnesia) 2,400 mg PRN Q12HR PRN PO CONSTIPATION; Start 08/06/16 at 18:00 Enoxaparin Sodium (Lovenox 40mg Syringe) 40 mg Q24H SQ Last administered on 20:51; Start 08/06/16 at 21:00 Insulin Aspart (Novolog) 0-5 UNITS TIDWMEALS SQ ; Start 08/07/16 at 08:00 Dextrose 12.5 gm PRN Q15MIN PRN IV SEE COMMENTS; Start 08/06/16 at 18:00 Lorazepam (Ativan) 0.5 mg PRN Q8HRS PRN PO ANXIETY / AGITATION Last administered on 08/07/16 15:23; Start 08/06/16 at 18:15 Albuterol Sulfate (Ventolin Neb Soln) 2.5 mg PRN Q4HRS PRN NEB SHORTNESS OF BREATH Last administered on 08/07/16 00:48; Start 08/07/16 at 00:15 Zolpidem Tartrate 5 mg 5 mg PRN QHS PRN PO INSOMNIA Last administered on 20:50; Start 08/07/16 at 14:30 Vancomycin HCl/ Sodium Chloride (Iv Sodium Chloride 0.9% 250ml) 250 ml @ 250 mls/hr Q12H IV Last administered on 08/09/16 03:22; Start 08/09/16 at 03:00 Vancomycin HCl 1 each 1X ONCE MC ; Start 08/10/16 at 02:30; Stop 08/10/16 at 02 :31 Active Scripts Active Duoneb 0.5-3(2.5) Mg/3 Ml (Albuterol/Ipratropium) 3 Ml Ampul.neb 3 Ml NEB RTQID Reported Preservision Areds Tablet (Vit A/Vit C/Vit E/Zinc/Copper) 1 Each Tablet 1 Each PO DAILY Metoprolol Tartrate 50 Mg Tablet 50 Tab PO BID Proair Hfa Inhaler (Albuterol Sulfate) 8.5 Gm Hfa.aer.ad 1 Puff INH PRN Q6HRS PRN Centrum Silver Tablet (Multivits-Min/Fa/Lycopene/Lut) 1 Each Tablet 1 Each PO DAILY [place] 3 Fish Oil Softgel ([place]-3 Fatty Acids/Fish Oil) 1 Each Capsule.dr 1 Each PO DAILY Lortab 5-325 mg Tablet (Hydrocodone/Acetaminophen) 1 Each Tablet 1 Tab PO BID PRN Vitamin D2 (Ergocalciferol (Vitamin D2)) 50,000 Unit Capsule 1 Cap PO WEEKLY Symbicort 160-4.5 Mcg Inhaler (Budesonide/Formoterol Fumarate) 10.2 Gm Hfa.aer.ad 2 Puff IH BID Aspirin 325 Mg Tablet 1 Tab PO DAILY Atorvastatin Calcium 10 Mg Tablet 1 Tab PO DAILY Fluticasone Propionate Nasal [place] (Fluticasone Propionate) [address] Lisinopril 2.5 Mg Tablet 1 Tab PO DAILY Finasteride 5 Mg Tablet 1 Tab PO DAILY Vitals/I & O Vital Sign - Last 24 Hours 08/08/16 08/08/16 08/08/16 08/08/16 09:27 09:30 11:15 12:03 Temp 97.9 97.9 Pulse 81 Resp 20 B/P 93/49 Pulse Ox 100 100 95 O2 Delivery Nasal Cannula Nasal Cannula Room Air Nasal Cannula O2 Flow Rate 2.0 2.0 2.0 08/08/16 08/08/16 08/08/16 08/08/16 15:00 15:56 15:57 18:35 Temp 97.5 97.5 Pulse 84 Resp 21 B/P 118/60 Pulse Ox 100 O2 Delivery Nasal Cannula Nasal Cannula Nasal Cannula Nasal Cannula O2 Flow Rate 2.0 2.0 2.0 2.0 08/08/16 08/08/16 08/08/16 08/08/16 19:00 20:00 20:49 23:00 Temp 98.1 98.2 98.1 98.2 Pulse 135 135 84 Resp 22 18 B/P 123/53 123/53 139/78 Pulse Ox 95 100 O2 Delivery Nasal Cannula O2 Flow Rate 3.0 08/09/16 08/09/16 08/09/16 08/09/16 03:00 07:37 07:43 07:46 Temp 98.3 98.0 98.3 98.0 Pulse 88 109 Resp 18 18 B/P 134/65 136/61 Pulse Ox 100 96 100 100 O2 Delivery Nasal Cannula Nasal Cannula Nasal Cannula O2 Flow Rate 3.0 2.0 2.0 08/09/16 08/09/16 08/09/16 08:00 08:11 08:12 Pulse 109 109 B/P 136/61 136/61 O2 Delivery Nasal Cannula O2 Flow Rate 3.0 Intake and Output 08/08/16 08/08/16 08/09/16 15:00 23:00 07:00 Intake Total 100 ml 300 ml 450 ml Output Total 100 ml 200 ml 150 ml Balance 0 ml 100 ml 300 ml WHIT GARRETT MD Aug 09, 2016 09:23
[2016-08-09] MEDS: methylPREDNISolone SOD SUCC PF 40 MG/ML VIAL. IV SCH ×3 (09:58→21:29)
[2016-08-09] MEDS: HYDROCODONE/APAP 5/325MG TABLET. PO PRN ×2 (09:58→19:29)
[2016-08-09 10:45] VITALS: BP 133/63
[2016-08-09 15:19] VITALS: BP 113/55
[2016-08-09] MEDS: VANCOMYCIN PER PHARMACY MC PRN (15:32)
--- NOTE | 2016-08-09 16:37 | PDOC2 ---
PALLIATIVE CARE Palliative Care Note Palliative Care Consult requested by Dr. Grimes to address goals of care Diagnosis; pneumonia, COPD; Patient alert sitting in chair. Alert and oriented. Discussed medical condition. He is aware of the pneumonia, COPD and continued smoking impacting those conditions. He enjoys smoking and will continue. He is not interested in comfort care. Wants to continue with current treatment plan. Spoke with daughter Jie. She is supportive of his wishes. States he has an outside the hospital DNR/DNI at home He confirms that he would not want resuscitation. Understands that without this attempt he likely would . Plan: Home with Home Health DNR/DNI LESLIE KERN Aug 09, 2016 16:37
[2016-08-09 19:00] VITALS: BP 115/57
[2016-08-09] MEDS: ATORVASTATIN CALCIUM 10 MG TABLET. PO SCH (20:43)
[2016-08-09] MEDS: ENOXAPARIN 40 MG/0.4 ML DISP.SYRIN. SQ SCH (20:44)
[2016-08-09 23:00] VITALS: BP 136/66
[2016-08-10] MEDS: PIPERACILLIN/TAZOBACTAM 4.5 GM in IV NORMAL SALINE 100ML 100 ML IV SCH ×5 (00:04→23:38)
[2016-08-10 03:00] VITALS: BP 136/65
[2016-08-10] MEDS: VANCOMYCIN PER PHARMACY MC PRN (03:50)
[2016-08-10] MEDS: methylPREDNISolone SOD SUCC PF 40 MG/ML VIAL. IV SCH ×3 (05:43→20:02)
[2016-08-10 07:00] VITALS: BP 113/74
[2016-08-10] MEDS: INSULIN ASPART 300 UNITS/3 ML INSULN.PEN SQ SCH (08:00)
[2016-08-10] MEDS: VANCOMYCIN 1 GM in IV NORMAL SALINE 250ML 250 ML IV SCH (08:05)
[2016-08-10] MEDS: MULTIVITAMIN with MINERAL TABLET. PO SCH (08:05)
[2016-08-10] MEDS: FINASTERIDE 5 MG TABLET PO SCH (08:06)
[2016-08-10] MEDS: BUDESONIDE 0.5 MG/2 ML NEBU NEB SCH ×2 (08:06→19:53)
[2016-08-10] MEDS: LISINOPRIL 2.5 MG TABLET PO SCH (08:06)
[2016-08-10] MEDS: IPRATRPIUM/ALBUTEROL 0.5/2.5MG 3 ML NEBU. NEB SCH ×4 (08:06→19:53)
[2016-08-10] MEDS: ASPIRIN 325 MG TABLET PO SCH (08:06)
[2016-08-10] MEDS: OMEGA-3 FATTY ACIDS/FISH OIL 1,000 MG CAPSULE. PO SCH (08:06)
[2016-08-10] MEDS: SENNOSIDES/DOCUSATE 8.6/50MG TABLET. PO SCH ×2 (08:06→20:03)
[2016-08-10] MEDS: METOPROLOL TART IMMED RELEASE 50 MG TABLET PO SCH ×2 (08:06→20:03)
[2016-08-10] MEDS: FLUTICASONE 50MCG/NASAL SPRAY 16GM BOTTLE. NS SCH (08:10)
--- NOTE | 2016-08-10 08:38 | PDOC ---
PROGRESS NOTES Subjective Subjective Patient reports he is feeling a little stronger and trying to eat more as advised. Objective Objective Vital Signs Date Time Temp Pulse Resp B/P Pulse Ox O2 Delivery O2 Flow Rate FiO2 08/10/16 08:07 98 Nasal Cannula 3.0 08/10/16 08:06 84 113/74 08/10/16 07:00 97.7 17 97.7 Intake and Output 08/10/16 07:00 Intake Total 930 ml Output Total 500 ml Balance 430 ml Intake Oral 830 ml IV Total 100 ml Output Urine Total 500 ml # Voids 1 Physical Exam Abdomen: Normal bowel sounds, Soft, No tenderness Heart: Regular rate Extremities: No edema General: Alert, Oriented X3, No acute distress Lungs: Other (BS moderately decreased throughout, no wheezes heard, no cough during exam) Assessment Assessment Problems Medical Problems: (1) Community acquired bacterial pneumonia Status: Acute (2) HAP (hospital-acquired pneumonia) Status: Acute Plan Plan of Care 1. Acute on chronic respiratory failure with COPD and healthcare-associated pneumonia - stable, sats good on O2. Will scale back abx, continue nebs and Solumedrol. 2. PAF - patient continues with brief episodes, is asymptomatic, continue ASA. 3. HTN - controlled, continue present meds. 4. UTI - light growth of Staph, sensitive to Vanco. 5. anemia - iron deficient on lab, start po Fe. 6. deconditioning - patient did better with PT yesterday, is determined to go home at discharge. Trying to eat more also as advised to help with strengthening. Comment Review of Relevant I have reviewed the following items juan manuel (where applicable) has been applied. Labs Laboratory Tests Test 08/08/16 11:29 08/08/16 14:34 08/08/16 16:46 08/08/16 21:02 Glucose (Fingerstick) 80mg/dL (70-99) 101mg/dL (70-99) 97mg/dL (70-99) White Blood Count 12.0x10^3/uL (4.0-11.0) Red Blood Count 2.79x10^6/uL (4.30-5.70) Hemoglobin 8.4g/dL (13.0-17.5) Hematocrit 26.0% (39.0-53.0) Mean Corpuscular Volume 93fL (79-100) Mean Corpuscular Hemoglobin 30pg (25-35) Mean Corpuscular Hemoglobin Concent 32g/dL (31-37) Red Cell Distribution Width 17.2% (11.5-14.5) Platelet Count 192x10^3/uL (140-400) Neutrophils (%) (Auto) 78% (31-73) Lymphocytes (%) (Auto) 15% (24-48) Monocytes (%) (Auto) 7% (0-9) Eosinophils (%) (Auto) 0% (0-3) Basophils (%) (Auto) 1% (0-3) Neutrophils # (Auto) 9.3x10^3uL (1.8-7.7) Lymphocytes # (Auto) 1.7x10^3/uL (1.0-4.8) Monocytes # (Auto) 0.8x10^3/uL (0.0-1.1) Eosinophils # (Auto) 0.0x10^3/uL (0.0-0.7) Basophils # (Auto) 0.1x10^3/uL (0.0-0.2) Reticulocyte Count (auto) 0.7% (0.5-2.5) Iron Level 37ug/dL (65-175) Total Iron Binding Capacity 131ug/dL (250-450) Iron Saturation 28% (15-34) Vancomycin Level Trough 11.0mcg/mL (10.0-20.0) Vancomycin Last Dose Date 08/07/16 Vancomycin Last Dose Time 1500 Test 08/09/16 07:22 08/10/16 03:05 Glucose (Fingerstick) 82mg/dL (70-99) Vancomycin Level Trough 22.5mcg/mL (10.0-20.0) Vancomycin Last Dose Date 08/09/16 Vancomycin Last Dose Time 1500 Laboratory Tests Test 08/10/16 03:05 Vancomycin Level Trough 22.5mcg/mL (10.0-20.0) Vancomycin Last Dose Date 08/09/16 Vancomycin Last Dose Time 1500 Microbiology 08/06/16 Blood Culture - Preliminary, Resulted NO GROWTH AFTER 3 DAYS 08/06/16 Urine Culture - Final, Complete 08/06/16 Urine Culture Result 1 ([place]) - Final, Complete 08/06/16 Antimicrobic Susceptibility - Final, Complete Medications Current Medications Lorazepam (Ativan) 0.5 mg 1X ONCE IV Last administered on 08/06/16 11:25; Start 08/06/16 at 11:30; Stop 08/06/16 at 11:31; Status DC Methylprednisolone Sodium Succinate 125 mg 125 mg 1X ONCE IV Last administered on 08/06/16 11:30; Start 08/06/16 at 11:15; Stop 08/06/16 at 11:16 ; Status DC Vancomycin HCl/ Sodium Chloride (Iv Sodium Chloride 0.9% 250ml) 250 ml @ 166.667 mls/hr 1X ONCE IV ; Start 08/06/16 at 11:15; Stop 08/06/16 at 12:44; Status Cancel Piperacillin Sod/ Tazobactam Sod (Zosyn Per Pharmacy) 1 each PRN DAILY PRN MC SEE COMMENTS; Start 08/06/16 at 11:15 Levofloxacin/ Dextrose 1 each 1 each PRN DAILY PRN MC SEE COMMENTS; Start 08/06 at 11:15 Levofloxacin/ Dextrose 150 ml @ 100 mls/hr 1X ONCE IV Last administered on 13:09; Start 08/06/16 at 11:30; Stop 08/06/16 at 12:59; Status DC Piperacillin Sod/ Tazobactam Sod 4.5 gm/Sodium Chloride 100 ml @ 200 mls/hr 1X ONCE IV Last administered on 08/06/16 11:44; Start 08/06/16 at 11:30; Stop 08/06/16 at 11:59; Status DC Vancomycin HCl/ Sodium Chloride (Iv Sodium Chloride 0.9% 500ml Bag) 500 ml @ 250 mls/hr 1X ONCE IV Last administered on 08/06/16 14:50; Start 08/06/16 at 11:30; Stop 08/06/16 at 13:29; Status DC Vancomycin HCl 1 each 1 each PRN DAILY PRN MC SEE COMMENTS Last administered on 08/10/16 03:50; Start 08/06/16 at 11:30 Piperacillin Sod/ Tazobactam Sod 4.5 gm/Sodium Chloride 100 ml @ 200 mls/hr Q6HRS IV Last administered on 08/10/16 05:43; Start 08/06/16 at 18:00 Levofloxacin/ Dextrose (LEVAQUIN 750mg PREMIX) 150 ml @ 100 mls/hr Q24H IV Last administered on 08/09/16 12:28; Start 08/07/16 at 13:00 Aspirin (Seble Aspirin) 325 mg DAILYWBKFT PO Last administered on 08/10/16 08: 06; Start 08/07/16 at 08:00 Atorvastatin Calcium (Lipitor) 10 mg QHS PO Last administered on 08/09/16 20: 43; Start 08/06/16 at 21:00 Ergocalciferol (Vitamin D2) 50,000 unit WEEKLY PO ; Start 08/13/16 at 09:00 Finasteride (Proscar) 5 mg DAILY PO Last administered on 08/10/16 08:06; Start 08/07/16 at 09:00 Fluticasone Propionate (Flonase) 1 spray DAILY NS Last administered on 08:10; Start 08/07/16 at 09:00 Acetaminophen/ Hydrocodone Bitart (Lortab 5/325) 1 tab BID PRN PO PAIN Last administered on 08/06/16 23:10; Start 08/06/16 at 14:00; Stop 08/09/16 at 15:32 ; Status DC Albuterol/ Ipratropium (Duoneb) 3 ml RTQID NEB Last administered on 08/10/16 08:06; Start 08/06/16 at 16:00 Lisinopril (Prinivil) 2.5 mg DAILY PO Last administered on 08/10/16 08:06; Start 08/07/16 at 09:00 Metoprolol Tartrate (Lopressor) 50 mg BID PO Last administered on 08/10/16 08: 06; Start 08/06/16 at 21:00 Multivitamins/ Calcium (Thera M Plus) 1 tab DAILY PO Last administered on 08:05; Start 08/07/16 at 09:00 Fish Oil (Fish Oil) 1,000 mg DAILY PO Last administered on 08/10/16 08:06; Start 08/07/16 at 09:00 Multivitamins/ Minerals (Ocuvite Lutein) 1 cap DAILY PO Last administered on 08:11; Start 08/07/16 at 09:00 Budesonide 0.5 mg 0.5 mg RTBID NEB Last administered on 08/10/16 08:06; Start 08/06/16 at 20:00 Vancomycin HCl/ Sodium Chloride (Iv Sodium Chloride 0.9% 250ml) 250 ml @ 250 mls/hr Q24H IV Last administered on 08/08/16 15:10; Start 08/07/16 at 15:00; Stop 08/08/16 at 16:06; Status DC Vancomycin HCl 1 each 1X ONCE MC Last administered on 08/08/16 14:30; Start 08/08/16 at 14:30; Stop 08/08/16 at 14:31; Status DC Acetaminophen/ Hydrocodone Bitart (Lortab 5/325) 1 tab PRN Q4HRS PRN PO MILD PAIN Last administered on 08/09/16 19:29; Start 08/06/16 at 18:00 Senna/Docusate Sodium (Senna Plus) 1 tab BID PO Last administered on 08/10/16 08:06; Start 08/06/16 at 21:00 Magnesium Hydroxide (Milk Of Magnesia) 2,400 mg PRN Q12HR PRN PO CONSTIPATION; Start 08/06/16 at 18:00 Enoxaparin Sodium (Lovenox 40mg Syringe) 40 mg Q24H SQ Last administered on 20:44; Start 08/06/16 at 21:00 Insulin Aspart (Novolog) 0-5 UNITS TIDWMEALS SQ ; Start 08/07/16 at 08:00 Dextrose 12.5 gm PRN Q15MIN PRN IV SEE COMMENTS; Start 08/06/16 at 18:00 Lorazepam (Ativan) 0.5 mg PRN Q8HRS PRN PO ANXIETY / AGITATION Last administered on 08/07/16 15:23; Start 08/06/16 at 18:15 Albuterol Sulfate (Ventolin Neb Soln) 2.5 mg PRN Q4HRS PRN NEB SHORTNESS OF BREATH Last administered on 08/07/16 00:48; Start 08/07/16 at 00:15 Zolpidem Tartrate 5 mg 5 mg PRN QHS PRN PO INSOMNIA Last administered on 20:50; Start 08/07/16 at 14:30 Vancomycin HCl/ Sodium Chloride (Iv Sodium Chloride 0.9% 250ml) 250 ml @ 250 mls/hr Q12H IV Last administered on 08/09/16 14:20; Start 08/09/16 at 03:00; Stop 08/10/16 at 03:42; Status DC Vancomycin HCl 1 each 1X ONCE MC Last administered on 08/10/16 03:51; Start 08/10/16 at 02:30; Stop 08/10/16 at 02:31; Status DC Methylprednisolone Sodium Succinate 40 mg 40 mg Q8HRS IV Last administered on 05:43; Start 08/09/16 at 09:30 Vancomycin HCl/ Sodium Chloride (Iv Sodium Chloride 0.9% 250ml) 250 ml @ 250 mls/hr Q18H IV Last administered on 08/10/16 08:05; Start 08/10/16 at 09:00 Vancomycin HCl 1 each 1X ONCE MC ; Start 08/12/16 at 14:30; Stop 08/12/16 at 14 :31 Active Scripts Active Duoneb 0.5-3(2.5) Mg/3 Ml (Albuterol/Ipratropium) 3 Ml Ampul.neb 3 Ml NEB RTQID Reported Preservision Areds Tablet (Vit A/Vit C/Vit E/Zinc/Copper) 1 Each Tablet 1 Each PO DAILY Metoprolol Tartrate 50 Mg Tablet 50 Tab PO BID Proair Hfa Inhaler (Albuterol Sulfate) 8.5 Gm Hfa.aer.ad 1 Puff INH PRN Q6HRS PRN Centrum Silver Tablet (Multivits-Min/Fa/Lycopene/Lut) 1 Each Tablet 1 Each PO DAILY [place] 3 Fish Oil Softgel ([place]-3 Fatty Acids/Fish Oil) 1 Each Capsule.dr 1 Each PO DAILY Lortab 5-325 mg Tablet (Hydrocodone/Acetaminophen) 1 Each Tablet 1 Tab PO BID PRN Vitamin D2 (Ergocalciferol (Vitamin D2)) 50,000 Unit Capsule 1 Cap PO WEEKLY Symbicort 160-4.5 Mcg Inhaler (Budesonide/Formoterol Fumarate) 10.2 Gm Hfa.aer.ad 2 Puff IH BID Aspirin 325 Mg Tablet 1 Tab PO DAILY Atorvastatin Calcium 10 Mg Tablet 1 Tab PO DAILY Fluticasone Propionate Nasal [place] (Fluticasone Propionate) 16 Gm [place].susp Lisinopril 2.5 Mg Tablet 1 Tab PO DAILY Finasteride 5 Mg Tablet 1 Tab PO DAILY Vitals/I & O Vital Sign - Last 24 Hours 08/09/16 08/09/16 08/09/16 08/09/16 09:58 10:45 11:02 11:16 Temp 98.0 98.0 Pulse 83 Resp 18 B/P 133/63 Pulse Ox 96 99 O2 Delivery Nasal Cannula Nasal Cannula Nasal Cannula Nasal Cannula O2 Flow Rate 3.0 2.0 08/09/16 08/09/16 08/09/16 08/09/16 15:19 15:23 18:16 19:00 Temp 97.3 98.1 97.3 98.1 Pulse 90 98 Resp 18 20 B/P 113/55 115/57 Pulse Ox 99 100 100 94 O2 Delivery Nasal Cannula Nasal Cannula Nasal Cannula Nasal Cannula O2 Flow Rate 3.0 3.0 3.0 3.0 08/09/16 08/09/16 08/09/16 08/09/16 19:29 20:00 20:43 23:00 Temp 98.0 98.0 Pulse 98 88 Resp 20 20 B/P 115/57 136/66 Pulse Ox 93 O2 Delivery Nasal Cannula Nasal Cannula Nasal Cannula O2 Flow Rate 3.0 3.0 3.0 08/10/16 08/10/16 08/10/16 08/10/16 03:00 04:35 07:00 08:06 Temp 97.9 97.7 97.9 97.7 Pulse 136 66 84 84 Resp 20 17 B/P 136/65 113/74 113/74 Pulse Ox 99 96 O2 Delivery Nasal Cannula Room Air O2 Flow Rate 3.0 08/10/16 08/10/16 08:06 08:07 Pulse 84 B/P 113/74 Pulse Ox 98 O2 Delivery Nasal Cannula O2 Flow Rate 3.0 Intake and Output 08/09/16 08/09/16 08/10/16 15:00 23:00 07:00 Intake Total 100 ml 360 ml 470 ml Output Total 300 ml 200 ml Balance -200 ml 160 ml 470 ml WHIT GARRETT MD Aug 10, 2016 08:38
[2016-08-10] MEDS: FERROUS SULFATE 325 MG TABLET PO SCH (08:47)
[2016-08-10] MEDS: MULTIVITAMIN EYE FORMULA CAPSULE. PO SCH (08:47)
[2016-08-10] MEDS: LORAZEPAM 0.5 MG TABLET. PO PRN (10:19)
[2016-08-10 11:00] VITALS: BP 139/65
[2016-08-10 15:04] VITALS: BP 130/62
[2016-08-10 19:00] VITALS: BP 135/64
[2016-08-10] MEDS: ENOXAPARIN 40 MG/0.4 ML DISP.SYRIN. SQ SCH (20:01)
[2016-08-10] MEDS: ATORVASTATIN CALCIUM 10 MG TABLET. PO SCH (20:02)
[2016-08-10 23:00] VITALS: BP 117/60
[2016-08-11 03:00] VITALS: BP 128/64
[2016-08-11] MEDS: VANCOMYCIN 1 GM in IV NORMAL SALINE 250ML 250 ML IV SCH (03:35)
[2016-08-11] MEDS: PIPERACILLIN/TAZOBACTAM 4.5 GM in IV NORMAL SALINE 100ML 100 ML IV SCH ×2 (05:12→12:11)
[2016-08-11] MEDS: methylPREDNISolone SOD SUCC PF 40 MG/ML VIAL. IV SCH (06:00)
[2016-08-11] MEDS: BUDESONIDE 0.5 MG/2 ML NEBU NEB SCH (07:15)
[2016-08-11] MEDS: IPRATRPIUM/ALBUTEROL 0.5/2.5MG 3 ML NEBU. NEB SCH ×2 (07:15→11:43)
[2016-08-11 07:58] VITALS: BP 118/59
--- NOTE | 2016-08-11 08:59 | PDOC ---
PROGRESS NOTES Subjective Subjective Patient states he feels much better, anxious to go home today. Objective Objective Vital Signs Date Time Temp Pulse Resp B/P Pulse Ox O2 Delivery O2 Flow Rate FiO2 08/11/16 07:15 97 3.0 08/11/16 03:00 98.2 70 20 128/64 Nasal Cannula 98.2 Intake and Output 08/11/16 07:00 Intake Total 640 ml Output Total 500 ml Balance 140 ml Intake Oral 290 ml Other 350 ml Output Urine Total 500 ml # Voids 5 # Bowel Movements 1 Physical Exam Abdomen: Normal bowel sounds, Soft, No tenderness Heart: Regular rate Extremities: No edema General: Alert, Oriented X3, No acute distress Lungs: Other (BS moderately decreased throughout but otherwise CTA) Assessment Assessment Problems Medical Problems: (1) Community acquired bacterial pneumonia Status: Acute (2) HAP (hospital-acquired pneumonia) Status: Acute Plan Plan of Care 1. Acute on chronic respiratory failure with pneumonia and COPD - improved, home today on po abx and Prednisone taper. Already has O2 and nebs at home. Plans to resume smoking... 2. PAF - asymptomatic, continue ASA. Rate otherwise controlled. 3. HTN - controlled, continue present meds. 4. anemia - home on Fe daily. 5. UTI - culture with light growth of Staph Aureus, sensitive to Doxycycline. 6. deconditioning - improving with PT. Patient does not feel he needs home health at this time so will not order. Comment Review of Relevant I have reviewed the following items juan manuel (where applicable) has been applied. Labs Laboratory Tests Test 08/10/16 03:05 Vancomycin Level Trough 22.5mcg/mL (10.0-20.0) Vancomycin Last Dose Date 08/09/16 Vancomycin Last Dose Time 1500 Microbiology 08/06/16 Blood Culture - Preliminary, Resulted NO GROWTH AFTER 4 DAYS 08/06/16 Urine Culture - Final, Complete 08/06/16 Urine Culture Result 1 ([place]) - Final, Complete 08/06/16 Antimicrobic Susceptibility - Final, Complete Medications Current Medications Lorazepam (Ativan) 0.5 mg 1X ONCE IV Last administered on 08/06/16 11:25; Start 08/06/16 at 11:30; Stop 08/06/16 at 11:31; Status DC Methylprednisolone Sodium Succinate 125 mg 125 mg 1X ONCE IV Last administered on 08/06/16 11:30; Start 08/06/16 at 11:15; Stop 08/06/16 at 11:16 ; Status DC Vancomycin HCl/ Sodium Chloride (Iv Sodium Chloride 0.9% 250ml) 250 ml @ 166.667 mls/hr 1X ONCE IV ; Start 08/06/16 at 11:15; Stop 08/06/16 at 12:44; Status Cancel Piperacillin Sod/ Tazobactam Sod (Zosyn Per Pharmacy) 1 each PRN DAILY PRN MC SEE COMMENTS; Start 08/06/16 at 11:15 Levofloxacin/ Dextrose 1 each 1 each PRN DAILY PRN MC SEE COMMENTS; Start 08/06 at 11:15; Stop 08/10/16 at 08:39; Status DC Levofloxacin/ Dextrose 150 ml @ 100 mls/hr 1X ONCE IV Last administered on 13:09; Start 08/06/16 at 11:30; Stop 08/06/16 at 12:59; Status DC Piperacillin Sod/ Tazobactam Sod 4.5 gm/Sodium Chloride 100 ml @ 200 mls/hr 1X ONCE IV Last administered on 08/06/16 11:44; Start 08/06/16 at 11:30; Stop 08/06/16 at 11:59; Status DC Vancomycin HCl/ Sodium Chloride (Iv Sodium Chloride 0.9% 500ml Bag) 500 ml @ 250 mls/hr 1X ONCE IV Last administered on 08/06/16 14:50; Start 08/06/16 at 11:30; Stop 08/06/16 at 13:29; Status DC Vancomycin HCl 1 each 1 each PRN DAILY PRN MC SEE COMMENTS Last administered on 08/10/16 03:50; Start 08/06/16 at 11:30 Piperacillin Sod/ Tazobactam Sod 4.5 gm/Sodium Chloride 100 ml @ 200 mls/hr Q6HRS IV Last administered on 08/11/16 05:12; Start 08/06/16 at 18:00 Levofloxacin/ Dextrose (LEVAQUIN 750mg PREMIX) 150 ml @ 100 mls/hr Q24H IV Last administered on 08/09/16 12:28; Start 08/07/16 at 13:00; Stop 08/10/16 at 08:39; Status DC Aspirin (Seble Aspirin) 325 mg DAILYWBKFT PO Last administered on 08/10/16 08: 06; Start 08/07/16 at 08:00 Atorvastatin Calcium (Lipitor) 10 mg QHS PO Last administered on 08/10/16 20: 02; Start 08/06/16 at 21:00 Ergocalciferol (Vitamin D2) 50,000 unit WEEKLY PO ; Start 08/13/16 at 09:00 Finasteride (Proscar) 5 mg DAILY PO Last administered on 08/10/16 08:06; Start 08/07/16 at 09:00 Fluticasone Propionate (Flonase) 1 spray DAILY NS Last administered on 08:10; Start 08/07/16 at 09:00 Acetaminophen/ Hydrocodone Bitart (Lortab 5/325) 1 tab BID PRN PO PAIN Last administered on 08/06/16 23:10; Start 08/06/16 at 14:00; Stop 08/09/16 at 15:32 ; Status DC Albuterol/ Ipratropium (Duoneb) 3 ml RTQID NEB Last administered on 08/11/16 07:15; Start 08/06/16 at 16:00 Lisinopril (Prinivil) 2.5 mg DAILY PO Last administered on 08/10/16 08:06; Start 08/07/16 at 09:00 Metoprolol Tartrate (Lopressor) 50 mg BID PO Last administered on 08/10/16 20: 03; Start 08/06/16 at 21:00 Multivitamins/ Calcium (Thera M Plus) 1 tab DAILY PO Last administered on 08:05; Start 08/07/16 at 09:00 Fish Oil (Fish Oil) 1,000 mg DAILY PO Last administered on 08/10/16 08:06; Start 08/07/16 at 09:00 Multivitamins/ Minerals (Ocuvite Lutein) 1 cap DAILY PO Last administered on 08:47; Start 08/07/16 at 09:00 Budesonide 0.5 mg 0.5 mg RTBID NEB Last administered on 08/11/16 07:15; Start 08/06/16 at 20:00 Vancomycin HCl/ Sodium Chloride (Iv Sodium Chloride 0.9% 250ml) 250 ml @ 250 mls/hr Q24H IV Last administered on 08/08/16 15:10; Start 08/07/16 at 15:00; Stop 08/08/16 at 16:06; Status DC Vancomycin HCl 1 each 1X ONCE MC Last administered on 08/08/16 14:30; Start 08/08/16 at 14:30; Stop 08/08/16 at 14:31; Status DC Acetaminophen/ Hydrocodone Bitart (Lortab 5/325) 1 tab PRN Q4HRS PRN PO MILD PAIN Last administered on 08/09/16 19:29; Start 08/06/16 at 18:00 Senna/Docusate Sodium (Senna Plus) 1 tab BID PO Last administered on 08/10/16 20:03; Start 08/06/16 at 21:00 Magnesium Hydroxide (Milk Of Magnesia) 2,400 mg PRN Q12HR PRN PO CONSTIPATION; Start 08/06/16 at 18:00 Enoxaparin Sodium (Lovenox 40mg Syringe) 40 mg Q24H SQ Last administered on 20:01; Start 08/06/16 at 21:00 Insulin Aspart (Novolog) 0-5 UNITS TIDWMEALS SQ ; Start 08/07/16 at 08:00; Stop 08/10/16 at 09:50; Status DC Dextrose 12.5 gm PRN Q15MIN PRN IV SEE COMMENTS; Start 08/06/16 at 18:00 Lorazepam (Ativan) 0.5 mg PRN Q8HRS PRN PO ANXIETY / AGITATION Last administered on 08/10/16 10:19; Start 08/06/16 at 18:15 Albuterol Sulfate (Ventolin Neb Soln) 2.5 mg PRN Q4HRS PRN NEB SHORTNESS OF BREATH Last administered on 08/07/16 00:48; Start 08/07/16 at 00:15 Zolpidem Tartrate 5 mg 5 mg PRN QHS PRN PO INSOMNIA Last administered on 20:50; Start 08/07/16 at 14:30 Vancomycin HCl/ Sodium Chloride (Iv Sodium Chloride 0.9% 250ml) 250 ml @ 250 mls/hr Q12H IV Last administered on 08/09/16 14:20; Start 08/09/16 at 03:00; Stop 08/10/16 at 03:42; Status DC Vancomycin HCl 1 each 1X ONCE MC Last administered on 08/10/16 03:51; Start 08/10/16 at 02:30; Stop 08/10/16 at 02:31; Status DC Methylprednisolone Sodium Succinate 40 mg 40 mg Q8HRS IV Last administered on 06:00; Start 08/09/16 at 09:30 Vancomycin HCl/ Sodium Chloride (Iv Sodium Chloride 0.9% 250ml) 250 ml @ 250 mls/hr Q18H IV Last administered on 08/11/16 03:35; Start 08/10/16 at 09:00 Vancomycin HCl 1 each 1X ONCE MC ; Start 08/12/16 at 14:30; Stop 08/12/16 at 14 :31 Ferrous Sulfate (Feosol) 325 mg DAILYWBKFT PO Last administered on 08/10/16 08 :47; Start 08/10/16 at 08:30 Active Scripts Active Duoneb 0.5-3(2.5) Mg/3 Ml (Albuterol/Ipratropium) 3 Ml Ampul.neb 3 Ml NEB RTQID Reported Preservision Areds Tablet (Vit A/Vit C/Vit E/Zinc/Copper) 1 Each Tablet 1 Each PO DAILY Metoprolol Tartrate 50 Mg Tablet 50 Tab PO BID Proair Hfa Inhaler (Albuterol Sulfate) 8.5 Gm Hfa.aer.ad 1 Puff INH PRN Q6HRS PRN Centrum Silver Tablet (Multivits-Min/Fa/Lycopene/Lut) 1 Each Tablet 1 Each PO DAILY [place] 3 Fish Oil Softgel ([place]-3 Fatty Acids/Fish Oil) 1 Each Capsule. 1 Each PO DAILY Lortab 5-325 mg Tablet (Hydrocodone/Acetaminophen) 1 Each Tablet 1 Tab PO BID PRN Vitamin D2 (Ergocalciferol (Vitamin D2)) 50,000 Unit Capsule 1 Cap PO WEEKLY Symbicort 160-4.5 Mcg Inhaler (Budesonide/Formoterol Fumarate) 10.2 Gm Hfa.aer.ad 2 Puff IH BID Aspirin 325 Mg Tablet 1 Tab PO DAILY Atorvastatin Calcium 10 Mg Tablet 1 Tab PO DAILY Fluticasone Propionate Nasal [place] (Fluticasone Propionate) 16 Gm [place].susp Lisinopril 2.5 Mg Tablet 1 Tab PO DAILY Finasteride 5 Mg Tablet 1 Tab PO DAILY Vitals/I & O Vital Sign - Last 24 Hours 08/10/16 08/10/16 08/10/16 08/10/16 10:51 11:00 15:04 16:05 Temp 97.6 97.5 97.6 97.5 Pulse 92 79 Resp 18 18 B/P 139/65 130/62 Pulse Ox 94 95 96 O2 Delivery Nasal Cannula Nasal Cannula Nasal Cannula Nasal Cannula O2 Flow Rate 3.0 3.0 2.0 3.0 08/10/16 08/10/16 08/10/16 08/10/16 19:00 19:52 20:00 20:03 Temp 99.5 99.5 Pulse 75 75 Resp 20 B/P 135/64 135/64 Pulse Ox 95 95 O2 Delivery Room Air Room Air Nasal Cannula O2 Flow Rate 3.0 08/10/16 08/11/16 08/11/16 23:00 03:00 07:15 Temp 97.5 98.2 97.5 98.2 Pulse 64 70 Resp 20 20 B/P 117/60 128/64 Pulse Ox 100 94 97 O2 Delivery Nasal Cannula Nasal Cannula O2 Flow Rate 2.0 2.0 3.0 Intake and Output 08/10/16 08/10/16 08/11/16 15:00 23:00 07:00 Intake Total 60 ml 580 ml Output Total 500 ml Balance 60 ml 80 ml WHIT GARRETT MD Aug 11, 2016 08:59
[2016-08-11] MEDS ORDERED: FERR325T72 PO (09:05)
[2016-08-11] MEDS ORDERED: PRED20TA PO (09:05)
[2016-08-11] MEDS ORDERED: DOXY100C2 PO (09:05)
[2016-08-11] MEDS: MULTIVITAMIN EYE FORMULA CAPSULE. PO SCH (09:22)
[2016-08-11 09:23] VITALS: BP 118/59
[2016-08-11] MEDS: MULTIVITAMIN with MINERAL TABLET. PO SCH (09:23)
[2016-08-11] MEDS: LISINOPRIL 2.5 MG TABLET PO SCH (09:23)
[2016-08-11] MEDS: METOPROLOL TART IMMED RELEASE 50 MG TABLET PO SCH (09:23)
[2016-08-11] MEDS: FINASTERIDE 5 MG TABLET PO SCH (09:24)
[2016-08-11] MEDS: FERROUS SULFATE 325 MG TABLET PO SCH (09:24)
[2016-08-11] MEDS: SENNOSIDES/DOCUSATE 8.6/50MG TABLET. PO SCH (09:24)
[2016-08-11] MEDS: ASPIRIN 325 MG TABLET PO SCH (09:24)
[2016-08-11] MEDS: OMEGA-3 FATTY ACIDS/FISH OIL 1,000 MG CAPSULE. PO SCH (09:24)
[2016-08-11] MEDS: FLUTICASONE 50MCG/NASAL SPRAY 16GM BOTTLE. NS SCH (09:27)
--- NOTE | 2016-08-11 11:25 | DS ---
DATE OF DISCHARGE: 08/11/2016 CHIEF COMPLAINT: Cough and shortness of breath. HISTORY OF PRESENT ILLNESS: The patient is an 86-year-old male with a history of chronic respiratory failure due to COPD who presented to the Emergency Room with the above complaint. The patient reported a several day history of increasing cough. He is on oxygen continuously at home and had continued this, but his symptoms worsened. He also had the development of a fever. He did continue to smoke cigarettes, however. Evaluation in the Emergency Room showed him to have a new infiltrate on his chest x-ray and since he had recently been hospitalized, this was considered healthcare associated pneumonia. Treatment was started and he was admitted for further treatment. HOSPITAL COURSE: The patient initially required BiPAP for respiratory support, but he was quickly weaned from this to his usual oxygen per nasal cannula and he had no further hypoxia on the oxygen. He was started on triple antibiotic treatment with vancomycin, Zosyn, and Levaquin as this was considered to be hospital-acquired because he had been hospitalized last month, Solu-Medrol was added and the patient had slow, but steady improvement in his respiratory status with this treatment. He now states his breathing is much better and the cough is much improved. He is quite anxious to return home today. He does intend to resume smoking despite many discussions about the harm that this is doing him. The patient has a history of paroxysmal atrial fibrillation. He was seen by Cardiology during his last hospital stay in June. He had an echocardiogram then with a preserved ejection fraction and cardiac catheterization, which did not show significant coronary artery disease. It was felt that anticoagulation with aspirin only would be best as he has a significant fall risk. He continues to have brief periods of atrial fibrillation, which are seen on telemetry, but he is asymptomatic with these and his rate is otherwise well controlled. Therefore, his usual medications for this will be continued. The patient has hypertension, which was controlled with his home medication. He has developed anemia. Labs showed mild iron deficiency and he was started on oral iron for treatment of this. This will be followed in the office as an outpatient. The patient had a mild urinary tract infection with a light growth of Staph aureus, which was hays sensitive. The patient has significant deconditioning and weakness. He received physical therapy and is doing very well with this. He has increased the amount that he is able to walk. His daughter takes care of him at home and they are not interested in care home for him. They feel that they can handle his care at home. The patient does not feel he needs home health as he is fairly independent with his cares and intends to resume driving and going out as he is able. FINAL DIAGNOSES: 1. Acute on chronic respiratory failure with healthcare-associated pneumonia and chronic obstructive pulmonary disease exacerbation. 2. Paroxysmal atrial fibrillation. 3. Hypertension. 4. Iron deficiency anemia. 5. Urinary tract infection. 6. Ongoing tobaccoism. DISCHARGE MEDICATIONS: Doxycycline 100 mg 1 p.o. b.i.d. x 5 days, iron 325 mg daily, prednisone 20 mg tablet 3 tablets daily for 3 days and 2 tablets daily for 3 days, then 1 tablet daily for 3 days, then discontinue, albuterol inhaler or nebulized treatments q.i.d., aspirin 325 mg daily, atorvastatin 10 mg daily, Symbicort 160/4.5 mcg two puffs b.i.d., vitamin D 50,000 units weekly, finasteride 5 mg daily, Flonase nasal spray daily, [place] 5/325 mg p.r.n., DuoNebs q.i.d., lisinopril 2.5 mg daily, metoprolol tartrate 50 mg b.i.d., multivitamin daily. Followup is with Dr. Grimes next week as scheduled. WHIT GARRETT MD DR: SHANTEL/markos JOB#: [id number] / [id number] JOSE ALBERTO
[2016-08-13] MEDS ORDERED: ERGOCALCIFEROL (VITAMIN D2) 50,000 UNIT CAPSULE PO SCH (09:00)
== END 2016-08-11 14:00 | disposition home or self-care (01) | DRG 871 ==
LOC: ER 09:53 → 5 SOUTH 11:30 → OBSVTOIN 18:08
PROVIDERS: ADMIT Family Medicine; ATTEND Family Medicine
DX: A41.9 Sepsis, unspecified organism (principal); J96.20 Acute and chronic respiratory failure, unspecified whether with hypoxia or hypercapnia; J18.9 Pneumonia, unspecified organism; J44.0 Chronic obstructive pulmonary disease with (acute) lower respiratory infection; J44.1 Chronic obstructive pulmonary disease with (acute) exacerbation; N39.0 Urinary tract infection, site not specified; D50.9 Iron deficiency anemia, unspecified; E78.00 Pure hypercholesterolemia, unspecified; E78.5 Hyperlipidemia, unspecified; F17.210 Nicotine dependence, cigarettes, uncomplicated; I10 Essential (primary) hypertension; Z51.5 Encounter for palliative care; I25.10 Atherosclerotic heart disease of native coronary artery without angina pectoris; I48.0 Paroxysmal atrial fibrillation; Y95 Nosocomial condition; Z66 Do not resuscitate; Z99.81 Dependence on supplemental oxygen; Z98.890 Other specified postprocedural states; I25.2 Old myocardial infarction; Z88.8 Allergy status to other drugs, medicaments and biological substances; Z79.899 Other long term (current) drug therapy
CPT/HCPCS: 36415; 71010; 80048; 80053; 80076; 80202; 81001; 82550; 82553; 82947; 83540; 83550; 83605; 83880; 84484; 85007; 85027; 85045; 85610; 85730; 87040; 87086; 87186; 87804; 93005; 94250; 94640; 94660; 94760; G0378; G0379; J1650; J1815; J1956; J2060; J2543; J2920; J2930; J3370; J7040; J7050; J7620; 97116; J7030

== ENCOUNTER → 2016-09-17 | Outpatient (CLI) | payer MEDICARE, OTHER ==
[~2016-09-17] MED LIST changes: +DOXY100C2 PO; +FERR325T72 PO; +METO50TA2 PO; +PRED20TA PO; +VIT1TABL34 PO
--- NOTE | 2016-09-17 17:06 | RAD ---
Bilateral lower extremity venous ultrasound, 09/17/2016: History: Leg edema Duplex evaluation of the deep veins in the lower extremities was performed including grayscale, color-flow and spectral Doppler analysis. The femoral and popliteal veins demonstrate normal compressibility and normal responses to distal augmentation maneuvers. Color imaging of those vessels shows no evidence of intraluminal clot. The visualized deep veins in both calves are patent. There is mild subcutaneous edema in the lower legs. IMPRESSION: There is no sonographic evidence of deep vein thrombosis in either lower extremity.
== END | disposition home or self-care (01) ==
LOC: US 15:32
PROVIDERS: ATTEND Family Medicine
DX: I82.403 Acute embolism and thrombosis of unspecified deep veins of lower extremity, bilateral (principal); R60.0 Localized edema
CPT/HCPCS: 93970

== ENCOUNTER 2016-10-13 15:16 | Emergency (ER) | payer MEDICARE, OTHER ==
[~2016-10-13] VITALS: Ht 180.3 cm; Wt 64.0 kg
[2016-10-13] MEDS ORDERED: LIDOCAINE 2% JELLY 6ML IN APPLICATOR. MM ONE (15:30)
--- NOTE | 2016-10-13 15:42 | PHYS DOC ---
Past Medical History Past Medical History: COPD, High Cholesterol, Hypertension, [place], Pneumonia, Other Additional Past Medical Histor: emphysema Past Surgical History: Other Additional Past Surgical Histo: hernia repair, left lobectomy Alcohol Use: Sober Drug Use: None Adult General Chief Complaint Chief Complaint: URINARY RETENTION HPI HPI Patient is a 86 year old male who presents with urinary retention since last night. States he has lower abdominal fullness and pain that is radiating into testicles and scrotum. States he has 2 prior episodes of urinary retention and had his catheter taken out at his PCPs office. He does not use flomax chronically, but may be on finasteride (family did not bring medication list). He denies prior dysuria, hematuria, back pain, f/c, n/v, diarrhea, testicle or scrotum swelling. Review of Systems Review of Systems Constitutional: Denies fever or chills [] Eyes: Denies change in visual acuity, redness, or eye pain [] HENT: Denies nasal congestion or sore throat [] Respiratory: Denies cough or shortness of breath [] Cardiovascular: No additional information not addressed in HPI [] GI: Denies nausea, vomiting, bloody stools or diarrhea [] : Denies dysuria or hematuria [] Musculoskeletal: Denies back pain or joint pain [] Integument: Denies rash or skin lesions [] Neurologic: Denies headache, focal weakness or sensory changes [] Endocrine: Denies polyuria or polydipsia [] Current Medications Current Medications Current Medications Medications (Trade) Dose Ordered Sig/[place] Start Time Stop Time Status Last Admin Dose Admin Lidocaine HCl (Glydo (Lidocaine) Jelly) 1 rick 1X ONCE 10/13/16 15:30 10/13/16 15:31 DC 10/13/16 15:48 1 RICK Allergies Allergies Allergies Coded Allergies Type Severity Reaction Last Updated Verified morphine Adverse Reaction Intermediate hallucinations 09/26/15 Yes Physical Exam Physical Exam Constitutional: Well developed, well nourished, no acute distress, non-toxic appearance. [] HENT: Normocephalic, atraumatic, bilateral external ears normal, oropharynx moist, nose normal. [] Eyes: PERRLA, EOMI. [] Neck: Normal range of motion, supple. [] Cardiovascular:Heart rate regular rhythm [] Lungs & Thorax: Bilateral breath sounds clear to auscultation [] Abdomen: Bowel sounds normal, soft, moderate suprapubic tenderness with palpable bladder. [] Skin: Warm, dry, no erythema, no rash. [] Back: No tenderness, no CVA tenderness. [] Extremities: No tenderness, ROM intact. [] Neurologic: Alert and oriented X 3, normal motor function, normal sensory function, no focal deficits noted. [] Psychologic: Affect normal, judgement normal, mood normal. [] Current Patient Data Vital Signs Vital Signs Date Time Temp Pulse Resp B/P Pulse Ox O2 Delivery O2 Flow Rate FiO2 10/13/16 15:21 98.1 70 18 168/60 95 Room Air 98.1 Lab Values Laboratory Tests Test 10/13/16 15:55 10/13/16 17:20 Urine Collection Type Void Urine Color Yellow Urine Clarity Clear Urine pH 5.5 Urine Specific [place] 1.010 Urine Protein Negativemg/dL (NEG-TRACE) Urine Glucose (UA) Negativemg/dL (NEG) Urine Ketones (Stick) Negativemg/dL (NEG) Urine Blood Negative (NEG) Urine Nitrite Negative (NEG) Urine Bilirubin Negative (NEG) Urine Urobilinogen Dipstick 0.2mg/dL (0.2 mg/dL) Urine Leukocyte Esterase Negative (NEG) Urine RBC 0/HPF (0-2) Urine WBC Occ/HPF (0-4) Urine Squamous Epithelial Cells Occ/LPF Urine Bacteria 0/HPF (0-FEW) Urine Hyaline Casts Few/HPF Urine Mucus Mod/LPF POC Hemoglobin 8.8g/dL (14-18) L POC Hematocrit 26% (37-52) L POC Sodium 145mmol/L (135-145) POC Potassium 3.2mmol/L (3.5-5.0) L POC Chloride 104mmol/L (98-110) POC Total CO2 27mmol/L (23-32) Anion Gap 19mmol/L (6-14) H POC Blood Urea Nitrogen 16mg/dL (8-26) POC Creatinine 0.8mg/dL (0.5-1.4) Glucose Level 102mg/dL (70-99) H POC Ionized Calcium (Levi) 1.15mmol/L (1.13-1.32) Laboratory Tests 10/13/16 17:20 Course & Med Decision Making Course & Med Decision Making Pertinent Labs and Imaging studies reviewed. (See chart for details) Workup is unremarkable other than urine output >500ml after Mchugh catheter placement. Feels much better after catheter placement. Recommend follow-up with urology and primary care doctor. Return precautions given. He and family understand and agree with plan. Dragon Disclaimer Dragon Disclaimer This electronic medical record was generated, in whole or in part, using a voice recognition dictation system. Departure Departure Impression: Primary Impression: Urinary retention Disposition: HOME, SELF-CARE Condition: STABLE Referrals: Meera RODRIGUEZ MD (PCP) JENNIFER ROD DO Patient Instructions: Urinary Retention, Acute, Male, [id number] Additional Instructions: Follow up with your primary care doctor and urology clinic. Please call for appointments. Return for any concerns. Juventino ROCHA MD Oct 13, 2016 15:42
[2016-10-13 16:00] LABS: BILIRUBIN,URINE NEGATIVE (NEG); GLUCOSE,URINE NEGATIVE (NEG); NITRITE,URINE NEGATIVE (NEG); PH,URINE 5.5; PROTEIN,URINE NEGATIVE (NEG-TRACE); UROBILINOGEN,URINE 0.2 mg/dL (0.2 mg/dL)
[2016-10-13 16:08] LABS: BACTERIA,URINE 0 /HPF (0-FEW); RBC,URINE 0 /HPF (0-2); SQUAMOUS EPITHELIAL CELL,UR OCC /LPF; WBC,URINE OCC /HPF (0-4)
[2016-10-13 17:27] LABS: POTASSIUM ISTAT 3.2 mmol/L (3.5-5.0)
[2016-10-13 18:25] VITALS: BP 176/75
== END 2016-10-13 18:25 | disposition home or self-care (01) ==
LOC: ER 15:16
DX: R33.9 Retention of urine, unspecified (principal); N50.82 Scrotal pain; E78.00 Pure hypercholesterolemia, unspecified; I10 Essential (primary) hypertension; J43.9 Emphysema, unspecified; I25.2 Old myocardial infarction; Z98.890 Other specified postprocedural states; Z88.5 Allergy status to narcotic agent
CPT/HCPCS: 51702; 80047; 81001; 99284-25

== ENCOUNTER 2016-10-20 15:31 | Emergency (ER) | payer MEDICARE ==
[~2016-10-20] VITALS: Ht 177.8 cm; Wt 64.0 kg
[2016-10-20] MEDS ORDERED: LIDOCAINE 2% JELLY 6ML IN APPLICATOR. MM ONE (16:00)
--- NOTE | 2016-10-20 16:47 | PHYS DOC ---
Past Medical History Past Medical History: COPD, High Cholesterol, Hypertension, [place], Pneumonia, Other Additional Past Medical Histor: emphysema Past Surgical History: Other Additional Past Surgical Histo: hernia repair, left lobectomy Alcohol Use: Sober Drug Use: None Adult General Chief Complaint Chief Complaint: URINE CATHETER PROBLEM HPI HPI Patient is a 86 year old male who presents with urinary catheter problem. Patient reports for the past 2-3 days he has been having urine draining from his penis around the catheter. He denies any pain or other problem. The catheter was placed in the ED last week for urinary retention (has had same problem in past). He has not seen a urologist yet, but does have an appt with his PCP next week. Review of Systems Review of Systems Constitutional: Denies fever or chills Respiratory: Denies cough or shortness of breath Cardiovascular: Denies chest pain GI: Denies abdominal pain, nausea, vomiting, or diarrhea : Urine leakage from around abrams catheter Musculoskeletal: Denies back pain or joint pain Neurologic: Denies headache, focal weakness or sensory changes Current Medications Current Medications Current Medications Medications (Trade) Dose Ordered Sig/[place] Start Time Stop Time Status Last Admin Dose Admin Ciprofloxacin (Cipro) 500 mg 1X ONCE 10/20/16 17:45 10/20/16 17:46 DC 10/20/16 17:51 500 MG Lidocaine HCl (Glydo (Lidocaine) Jelly) 1 rick 1X ONCE 10/20/16 16:00 10/20/16 16:01 DC 10/20/16 16:11 1 RICK Allergies Allergies Allergies Coded Allergies Type Severity Reaction Last Updated Verified morphine Adverse Reaction Intermediate hallucinations 09/26/15 Yes Physical Exam Physical Exam Constitutional: Well developed, well nourished, no acute distress, non-toxic appearance HENT: Normocephalic, atraumatic Eyes: EOMI, conjunctiva normal, no discharge Neck: No stridor Pulmonary: No respiratory distress Abdomen: Soft, nondistended, no TTP : Abrams catheter in place, no erythema, no lesions, no skin breakdown, no leakage appreciated at this time Skin: Warm, dry Neurologic: Alert and oriented X 3 Current Patient Data Vital Signs Vital Signs Date Time Temp Pulse Resp B/P Pulse Ox O2 Delivery O2 Flow Rate FiO2 10/20/16 17:00 62 157/66 90 Room Air 10/20/16 15:35 99.9 16 99.9 Lab Values Laboratory Tests Test 10/20/16 16:15 Urine Collection Type Unknown Urine Color Yellow Urine Clarity Cloudy Urine pH 5.5 Urine Specific [place] 1.020 Urine Protein >=300mg/dL (NEG-TRACE) Urine Glucose (UA) Negativemg/dL (NEG) Urine Ketones (Stick) Negativemg/dL (NEG) Urine Blood Moderate (NEG) Urine Nitrite Negative (NEG) Urine Bilirubin Negative (NEG) Urine Urobilinogen Dipstick 0.2mg/dL (0.2 mg/dL) Urine Leukocyte Esterase Moderate (NEG) Urine RBC >40/HPF (0-2) Urine WBC 11-20/HPF (0-4) Urine Amorphous Sediment Present/HPF Urine Bacteria Moderate/HPF (0-FEW) Urine Hyaline Casts Few/HPF Urine Mucus Mod/LPF Urine Yeast Present/HPF EKG EKG [] Radiology/Procedures Radiology/Procedures [] Course & Med Decision Making Course & Med Decision Making Pertinent Labs and Imaging studies reviewed. (See chart for details) Patient is 86 year old male who presents with abrams catheter problem. Catheter replaced with larger catheter (up to 18fr from 16fr) without difficulty. UA shows evidence of UTI, will go ahead and treat with abx. Discussed results with patient and daughter. Dose of cipro given in ED. Patient discharged with rx for same. instructions for follow up with urology, and return precautions. Dragon Disclaimer Dragon Disclaimer This electronic medical record was generated, in whole or in part, using a voice recognition dictation system. Departure Departure Impression: Primary Impression: Abrams catheter problem Disposition: HOME, SELF-CARE Condition: STABLE Referrals: ROBERT RODRIGUEZ MD (PCP) JENNIFER MATTA DO Patient Instructions: Abrams Catheter Care, Adult Additional Instructions: Thank you for allowing us to provide care today in the Emergency Department. Your abrams catheter has been exchanged in the ED and is draining well. Take the prescribed medication as directed. Schedule a follow up appointment with a urologist (Dr. Matta) using the provided contact information. Return promptly to the Emergency Department if you develop any new or concerning symptoms. Scripts Ciprofloxacin Hcl (Cipro)500 Mg Tablet1 Tab PO BID #14 TAB Prov:MICHELLE DWYER MD 10/20/16 MICHELLE DWYER MD Oct 20, 2016 16:46
[2016-10-20 17:03] LABS: BILIRUBIN,URINE NEGATIVE (NEG); GLUCOSE,URINE NEGATIVE (NEG); NITRITE,URINE NEGATIVE (NEG); PH,URINE 5.5; PROTEIN,URINE >=300 mg/dL (NEG-TRACE); UROBILINOGEN,URINE 0.2 mg/dL (0.2 mg/dL)
[2016-10-20 17:18] LABS: BACTERIA,URINE MODERATE /HPF (0-FEW); RBC,URINE >40 /HPF (0-2); YEAST,URINE PRESENT /HPF
[2016-10-20 17:30] VITALS: BP 138/60
[2016-10-20] MEDS ORDERED: CIPR500T94 PO (17:36)
[2016-10-20] MEDS ORDERED: CIPROFLOXACIN HCL 250 MG TABLET. PO ONE (17:45)
== END 2016-10-20 17:54 | disposition home or self-care (01) ==
LOC: ER 15:31
DX: T83.038A Leakage of other urinary catheter, initial encounter (principal); J44.9 Chronic obstructive pulmonary disease, unspecified; E78.00 Pure hypercholesterolemia, unspecified; I25.2 Old myocardial infarction; I10 Essential (primary) hypertension; J43.9 Emphysema, unspecified; Z88.5 Allergy status to narcotic agent
CPT/HCPCS: 51702; 81001; 87086; 87186; 96372; 99284-25

== ENCOUNTER 2016-11-12 09:40 | Emergency (ER) | payer MEDICARE ==
[~2016-11-12] VITALS: Ht 180.3 cm; Wt 64.4 kg
[~2016-11-12 09:40] MED LIST changes: +CIPR500T94 PO
--- NOTE | 2016-11-12 10:07 | PHYS DOC ---
Past Medical History Past Medical History: COPD, High Cholesterol, Hypertension, [place], Pneumonia, Other Additional Past Medical Histor: emphysema Past Surgical History: Other Additional Past Surgical Histo: hernia repair, left lobectomy Alcohol Use: Sober Drug Use: None Adult General Chief Complaint Chief Complaint: URINE CATHETER PROBLEM HPI HPI Patient is a 86 year old MALE who presents with penile pain and urination decrease. Patient has history of chronic urinary obstruction with an indwelling Abrams catheter. Daughter who cares for the Abrams noticed the urine was leaking around the Abrams and there is no output in the bag, concerned that there is an obstruction of the back. Patient denies abdominal distention, has no control of his urination. He sees Dr. Carranza. Denies other symptoms such as abdominal pain, nausea or vomiting no fevers. Review of Systems Review of Systems Constitutional: Denies fever or chills [] Eyes: Denies change in visual acuity, redness, or eye pain [] HENT: Denies nasal congestion or sore throat [] Respiratory: Denies cough or shortness of breath [] Cardiovascular: No additional information not addressed in HPI [] GI: Denies abdominal pain, nausea, vomiting, bloody stools or diarrhea [] : per history of present illness Musculoskeletal: Denies back pain or joint pain [] Integument: Denies rash or skin lesions [] Neurologic: Denies headache, focal weakness or sensory changes [] Allergies Allergies Allergies Coded Allergies Type Severity Reaction Last Updated Verified morphine Adverse Reaction Intermediate hallucinations 09/26/15 Yes Physical Exam Physical Exam Constitutional: Well developed, well nourished, no acute distress, non-toxic appearance. [] HENT: Normocephalic, atraumatic, bilateral external ears normal, oropharynx moist, no oral exudates, nose normal. [] Eyes: PERRLA, EOMI, conjunctiva normal, no discharge. [] Neck: Normal range of motion, no tenderness, supple, no stridor. [] Cardiovascular:Heart rate regular rhythm, no murmur [] Lungs & Thorax: Bilateral breath sounds clear to auscultation [] Abdomen: Bowel sounds normal, soft, no tenderness, no masses, no pulsatile masses. [] Skin: Warm, dry, no erythema, no rash. [] Back: No tenderness, no CVA tenderness. [] Extremities: No tenderness, no cyanosis, no clubbing, ROM intact, no edema. [] Neurologic: Alert and oriented X 3, normal motor function, normal sensory function, no focal deficits noted. [] Psychologic: Affect normal, judgement normal, mood normal. [] Current Patient Data Vital Signs Vital Signs Date Time Temp Pulse Resp B/P Pulse Ox O2 Delivery O2 Flow Rate FiO2 11/12/16 09:44 98 64 133/62 95 Room Air 98.0 EKG EKG [] Radiology/Procedures Radiology/Procedures Nursing staff instructed to flush Abrams and unsuccessful remove and replace Abrams catheter. [] Course & Med Decision Making Course & Med Decision Making Pertinent Labs and Imaging studies reviewed. (See chart for details) abrams flushed, 400ml came out. continue home care. Diagnosis: abrams catheter problem, chronic urinary obstruction Dragon Disclaimer Dragon Disclaimer This electronic medical record was generated, in whole or in part, using a voice recognition dictation system. Departure Departure Referrals: ROBERT RODRIGUEZ MD (PCP) PAULO CRAWFORD MD Nov 12, 2016 10:07
[2016-11-12 11:11] VITALS: BP 133/62
== END 2016-11-12 11:12 | disposition home or self-care (01) ==
LOC: ER 09:40
DX: T83.89XA Other specified complication of genitourinary prosthetic devices, implants and grafts, initial encounter (principal); N13.9 Obstructive and reflux uropathy, unspecified; E78.00 Pure hypercholesterolemia, unspecified; I10 Essential (primary) hypertension; J44.9 Chronic obstructive pulmonary disease, unspecified; I25.2 Old myocardial infarction; Z87.01 Personal history of pneumonia (recurrent); Z88.5 Allergy status to narcotic agent; Y73.8 Miscellaneous gastroenterology and urology devices associated with adverse incidents, not elsewhere classified; Y92.89 Other specified places as the place of occurrence of the external cause
CPT/HCPCS: 99284

== ENCOUNTER → 2016-12-17 | Outpatient (CLI) | payer MEDICARE ==
--- NOTE | 2016-12-17 13:37 | RAD ---
Indication history of COPD. Frontal and lateral views of the chest were obtained and are compared to a study August 06, 2016. There are background changes compatible with emphysema and/or fibrosis. An acute parenchymal infiltrate is not seen. The heart and pulmonary vessels are within normal limits. There are healed bilateral rib fractures. There is a healed left clavicular fracture. IMPRESSION: Chronic changes. No acute process seen.
== END | disposition home or self-care (01) ==
LOC: RAD 12:52
PROVIDERS: ATTEND Internal Medicine Critical Care Medicine
DX: J44.9 Chronic obstructive pulmonary disease, unspecified (principal)
CPT/HCPCS: 71020

== ENCOUNTER 2017-04-17 03:39 | Inpatient (IN) | payer MEDICARE ==
[~2017-04-17] VITALS: Ht 180.3 cm; Wt 72.6 kg
[~2017-04-17 03:39] MED LIST changes: -ASPI325T4 PO; +ASPI325T8 PO; +DOCU100C28 PO; -DOCU100C5 PO; -ERGO500012 PO; +ERGO500027 PO; -LEVO500T38 PO; +LEVO500T59 PO; -METO50TA2 PO; +METO50TA6 PO
--- NOTE | 2017-04-17 04:47 | PHYS DOC ---
Past Medical History Past Medical History: Cancer, COPD, High Cholesterol, Hypertension, [place], Pneumonia, Other Additional Past Medical Histor: emphysema, LUNG CA Past Surgical History: Other Additional Past Surgical Histo: hernia repair, left lobectomy Alcohol Use: Rarely Drug Use: None Adult General Chief Complaint Chief Complaint: SHORTNESS OF BREATH HPI HPI Patient is a 87 year old male who presents with complaints of productive cough as well as shortness of breath. Patient is a smoker. Patient denies any fevers, chills, rashes, sick contacts. Patient also has complaints of soreness on his tailbone. Review of Systems Review of Systems Constitutional: Denies fever or chills [] Eyes: Denies change in visual acuity, redness, or eye pain [] HENT: Denies nasal congestion or sore throat [] Respiratory: Yes to cough and shortness of breath Cardiovascular: No S pain[] GI: Denies abdominal pain, nausea, vomiting, bloody stools or diarrhea [] : Denies dysuria or hematuria [] Musculoskeletal: Pain at the tailbone. Integument: Lesion at the tailbone. Neurologic: Denies headache, focal weakness or sensory changes [] Current Medications Current Medications Current Medications Medications (Trade) Dose Ordered Sig/[place] Start Time Stop Time Status Last Admin Dose Admin Albuterol/ Ipratropium (Duoneb) 3 ml 1X ONCE 04/17/17 05:00 04/17/17 05:01 DC 04/17/17 04:42 3 ML Azithromycin 250 ml @ 250 mls/hr 1X ONCE 04/17/17 06:00 04/17/17 06:59 Prednisone (Prednisone) 60 mg 1X ONCE 04/17/17 05:00 04/17/17 05:01 DC 04/17/17 04:37 60 MG Allergies Allergies Allergies Coded Allergies Type Severity Reaction Last Updated Verified morphine Adverse Reaction Intermediate hallucinations 09/26/15 Yes Physical Exam Physical Exam Constitutional: Well developed, cachectic, mild distress, non-toxic appearance. [] HENT: Normocephalic, atraumatic, , oropharynx dry, no oral exudates, nose normal. [] Eyes: EOMI, conjunctiva normal, no discharge. [] Neck: Normal range of motion, no tenderness, supple, no stridor. No JVD Cardiovascular:Heart rate regular rhythm, no murmur [] Lungs & Thorax: Decreased breathe sounds bilaterally, no wheezing, no rales Abdomen: Bowel sounds normal, soft, no tenderness, no masses, no pulsatile masses. [] Skin: Warm, dry, no erythema, no rash. Exception: Stage I decubital ulcer at tailbone, no signs of cellulitis or abscess Back: No tenderness, no CVA tenderness. [] Extremities: No tenderness, no cyanosis, no DVT, ROM intact, no edema. [] Neurologic: Alert and oriented X 3, normal motor function, , no focal deficits noted. [] Psychologic: Affect normal, judgement normal, mood normal. [] Current Patient Data Vital Signs Vital Signs Date Time Temp Pulse Resp B/P (MAP) Pulse Ox O2 Delivery O2 Flow Rate FiO2 04/17/17 04:43 98 Nasal Cannula 5.0 04/17/17 03:51 97.7 93 18 125/62 (83) 97.7 Lab Values Laboratory Tests Test 04/17/17 04:30 White Blood Count 12.5 x10^3/uL (4.0-11.0) H Red Blood Count 2.72 x10^6/uL (4.30-5.70) L Hemoglobin 7.5 g/dL (13.0-17.5) L Hematocrit 22.8 % (39.0-53.0) L Mean Corpuscular Volume 84 fL (79-100) Mean Corpuscular Hemoglobin 28 pg (25-35) Mean Corpuscular Hemoglobin Concent 33 g/dL (31-37) Red Cell Distribution Width 16.6 % (11.5-14.5) H Platelet Count 346 x10^3/uL (140-400) Neutrophils (%) (Auto) 80 % (31-73) H Lymphocytes (%) (Auto) 12 % (24-48) L Monocytes (%) (Auto) 7 % (0-9) Eosinophils (%) (Auto) 1 % (0-3) Basophils (%) (Auto) 1 % (0-3) Neutrophils # (Auto) 10.0 x10^3uL (1.8-7.7) H Lymphocytes # (Auto) 1.5 x10^3/uL (1.0-4.8) Monocytes # (Auto) 0.8 x10^3/uL (0.0-1.1) Eosinophils # (Auto) 0.2 x10^3/uL (0.0-0.7) Basophils # (Auto) 0.1 x10^3/uL (0.0-0.2) Sodium Level 141 mmol/L (136-145) Potassium Level 3.7 mmol/L (3.5-5.1) Chloride Level 102 mmol/L (98-107) Carbon Dioxide Level 36 mmol/L (21-32) H Anion Gap 3 (6-14) L Blood Urea Nitrogen 26 mg/dL (8-26) Creatinine 1.4 mg/dL (0.7-1.3) H Estimated GFR (Cockcroft-Gault) 48.1 Glucose Level 104 mg/dL (70-99) H Calcium Level 8.9 mg/dL (8.5-10.1) Total Bilirubin 0.1 mg/dL (0.2-1.0) L Direct Bilirubin 0.1 mg/dL (0.0-0.2) Aspartate Amino Transferase (AST) 19 U/L (15-37) Alanine Aminotransferase (ALT) 16 U/L (16-63) Alkaline Phosphatase 88 U/L (46-116) Troponin I Quantitative < 0.017 ng/mL (0.000-0.055) CA-Ymk-U-Type Natriuretic Peptide 1276 pg/mL (0-449) H Total Protein 6.7 g/dL (6.4-8.2) Albumin 1.6 g/dL (3.4-5.0) L Laboratory Tests 04/17/17 04:30 Laboratory Tests 04/17/17 04:30 EKG EKG 0357 afib, 84, no stemi[] Radiology/Procedures Radiology/Procedures [] Course & Med Decision Making Course & Med Decision Making Pertinent Labs and Imaging studies reviewed. (See chart for details) 0545 patient still having mild respiratory distress, mild use of accessory muscles, still with poor air movement, no wheezing, no rhonchi. [] Dragon Disclaimer Dragon Disclaimer This electronic medical record was generated, in whole or in part, using a voice recognition dictation system. Departure Departure Impression: Primary Impression: COPD exacerbation Additional Impressions: Anemia Tobacco abuse Tobacco abuse counseling Decubital ulcer Disposition: 09 ADMITTED INPATIENT Admitting Physician: Darek Rodriguez Condition: STABLE Referrals: Meera RODRIGUEZ MD (PCP) Problem Qualifiers Iveth ORLANDO MD Apr 17, 2017 04:47
[2017-04-17 04:52] LABS: BASO # 0.1 x10^3/uL (0.0-0.2); BASO % 1 % (0-3); EOS % 1 % (0-3); HEMATOCRIT 22.8 % (39.0-53.0); HEMOGLOBIN 7.5 g/dL (13.0-17.5); LYMPH # 1.5 x10^3/uL (1.0-4.8); LYMPH % 12 % (24-48); MEAN CORPUSCULAR HEMOGLOBIN 28 pg (25-35); MEAN CORPUSCULAR HGB CONC 33 g/dL (31-37); MEAN CORPUSCULAR VOLUME 84 fL (79-100); MONO % 7 % (0-9); NEUT % 80 % (31-73); PLATELET COUNT 346 x10^3/uL (140-400); RED BLOOD COUNT 2.72 x10^6/uL (4.30-5.70); RED CELL DISTRIBUTION WIDTH 16.6 % (11.5-14.5); WHITE BLOOD COUNT 12.5 x10^3/uL (4.0-11.0)
[2017-04-17] MEDS ORDERED: predniSONE 20 MG TABLET PO ONE (05:00)
[2017-04-17] MEDS ORDERED: IPRATRPIUM/ALBUTEROL 0.5/2.5MG 3 ML NEBU. NEB ONE (05:00)
[2017-04-17 05:05] LABS: CALCIUM 8.9 mg/dL (8.5-10.1); CREATININE 1.4 mg/dL (0.7-1.3); GFR 48.1; POTASSIUM 3.7 mmol/L (3.5-5.1)
[2017-04-17 05:10] LABS: ALBUMIN 1.6 g/dL (3.4-5.0); DIRECT BILIRUBIN 0.1 mg/dL (0.0-0.2); TOTAL BILIRUBIN 0.1 mg/dL (0.2-1.0); TOTAL PROTEIN 6.7 g/dL (6.4-8.2)
[2017-04-17] MEDS ORDERED: AZITHRMYCN 500MG IVPB FOR OMNI 250 ML IV ONE (06:00)
--- NOTE | 2017-04-17 07:34 | RAD ---
Portable AP chest. History: Dyspnea AP view was taken of the chest. Patient's had a previous left thoracotomy. There is left pleural thickening unchanged from old studies. There is an interstitial prominence compared to old studies possibly interstitial infiltrates or vascular congestion and interstitial edema. A confluent pneumonia is not identified. The heart is normal in size. Impression: 1. Previous left thoracotomy. 2. Left pleural thickening. 3. Mild interstitial prominence possible interstitial infiltrates or edema.
--- NOTE | 2017-04-17 09:37 | PDOC1 ---
History and Physical Date of Admission Date of Admission DATE: 04/17/17 Identification/Chief Complaint Chief Complaint Cough and shortness of breath Problems: Source Source: Patient History of Present Illness History of Present Illness Pt says that he has been coughing and had increased shortness of air over the past 3-4 weeks, but really worsened within the past 4-5 days. He was recently in [place] for a couple of months visiting family, and just recently returned to [place]. While he was in [place] he developed a pressure ulcer over his sacrum. Cough has been productive with white to yellow phlegm. He is currently feeling better. Past Medical History Cardiovascular: AFIB, CAD, HTN, Hyperlipidemia, Pulmonary hypertension Pulmonary: COPD, Pneumonia CENTRAL NERVOUS SYSTEM: Other GI: Diverticulosis Heme/Onc: B12 deficiency, Cancer, Iron deficiency Anemia Hepatobiliary: Cholelithiasis Psych: Addictions, Depression Musculoskeletal: low back pain, Osteoarthritis Rheumatologic: No pertinent hx Infectious disease: No pertinent hx ENT: No pertinent hx Renal/: Benign prostatic enlarg. Endocrine: No pertinent hx Dermatology: No pertinent hx Past Surgical History Past Surgical History: Cholecystectomy, Hernia Repair Family History Family History: Heart Disease Social History Smoke: <1 pack per day ALCOHOL: none Drugs: None Current Problem List Problem List Problems Medical Problems: (1) Anemia Status: Acute (2) COPD exacerbation Status: Acute (3) Decubital ulcer Status: Acute (4) Tobacco abuse Status: Acute (5) Tobacco abuse counseling Status: Acute Problems: Current Medications Current Medications Current Medications Albuterol/ Ipratropium (Duoneb) 3 ml 1X ONCE NEB Last administered on 04:42; Start 04/17/17 at 05:00; Stop 04/17/17 at 05:01; Status DC Prednisone (Prednisone) 60 mg 1X ONCE PO Last administered on 04/17/17 04:37 ; Start 04/17/17 at 05:00; Stop 04/17/17 at 05:01; Status DC Azithromycin 250 ml @ 250 mls/hr 1X ONCE IV Last administered on 04/17/17 06 :45; Start 04/17/17 at 06:00; Stop 04/17/17 at 06:59; Status DC Active Scripts Active Cipro (Ciprofloxacin Hcl) 500 Mg Tablet 1 Tab PO BID Feosol (Ferrous Sulfate) 325 Mg Tablet 325 Mg PO [id number] 30 Days Prednisone 20 Mg Tablet 1 Tab PO DAILY 9 Days Doxycycline Hyclate 100 Mg Capsule 1 Cap PO BID 5 Days Duoneb 0.5-3(2.5) Mg/3 Ml (Albuterol/Ipratropium) 3 Ml Ampul.neb 3 Ml NEB RTQID Reported Preservision Areds Tablet (Vit A/Vit C/Vit E/Zinc/Copper) 1 Each Tablet 1 Each PO DAILY Metoprolol Tartrate 50 Mg Tablet 50 Tab PO BID Proair Hfa Inhaler (Albuterol Sulfate) 8.5 Gm Hfa.aer.ad 1 Puff INH PRN Q6HRS PRN Centrum Silver Tablet (Multivits-Min/Fa/Lycopene/Lut) 1 Each Tablet 1 Each PO DAILY Cayuga 3 Fish Oil Softgel ([place]-3 Fatty Acids/Fish Oil) 1 Each Capsule.dr 1 Each PO DAILY Lortab 5-325 mg Tablet (Hydrocodone/Acetaminophen) 1 Each Tablet 1 Tab PO BID PRN Vitamin D2 (Ergocalciferol (Vitamin D2)) 50,000 Unit Capsule 1 Cap PO WEEKLY Symbicort 160-4.5 Mcg Inhaler (Budesonide/Formoterol Fumarate) 10.2 Gm Hfa.aer.ad 2 Puff IH BID Aspirin 325 Mg Tablet 1 Tab PO DAILY Atorvastatin Calcium 10 Mg Tablet 1 Tab PO DAILY Fluticasone Propionate Nasal Swink (Fluticasone Propionate) 16 Gm Swink.susp Lisinopril 2.5 Mg Tablet 1 Tab PO DAILY Finasteride 5 Mg Tablet 1 Tab PO DAILY Allergies Allergies: Coded Allergies: morphine (Verified Adverse Reaction, Intermediate, hallucinations, 09/26/15 ) ROS General: YES: Chills, No: Night Sweats PSYCHOLOGICAL ROS: No: Anxiety, Depression Eyes: No Decreased vision, No Eye Pain HEENT: No: Nasal congestion, Sore Throat ALLERGY AND IMMUNOLOGY: No: Hives, Post Nasal Drip Hematological and Lymphatic: No: Bleeding Problems, Blood Clots Respiratory: YES: Cough, Shortness of breath, Sputum Changes Cardiovascular: No Chest Pain, No Palpitations, No Edema Gastrointestinal: No Nausea, No Vomiting, No Abdominal Pain, No Diarrhea, No Constipation Genitourinary: No Dysuria, No Urgency Musculoskeletal: No Joint Pain, No Muscle Pain Neurological: No Impaired Coord/balance, No Numbness/Tingling Skin: No Rash, No Skin Lesion Changes Physical Exam General: Alert, Oriented X3, Cooperative, No acute distress, Other (cachetic) HEENT: Atraumatic, PERRLA, EOMI, Mucous membr. moist/pink Lungs: Other (rhonchi throughout) Heart: RRR, no rubs, no gallops, no murmurs Abdomen: Normal bowel sounds, Soft, No tenderness, No hepatosplenomegaly Extremities: No clubbing, No cyanosis, No edema Skin: No rashes Neuro: Normal speech, Normal tone, Cranial nerves 3-12 NL Psych/Mental Status: Mental status NL, Mood NL Vitals Vitals Vital Signs Date Time Temp Pulse Resp B/P (MAP) Pulse Ox O2 Delivery O2 Flow Rate FiO2 04/17/17 06:42 75 22 109/54 (72) 99 Nasal Cannula 6.0 04/17/17 03:51 97.7 97.7 Labs Labs Laboratory Tests Test 04/17/17 04:30 White Blood Count 12.5 x10^3/uL (4.0-11.0) Red Blood Count 2.72 x10^6/uL (4.30-5.70) Hemoglobin 7.5 g/dL (13.0-17.5) Hematocrit 22.8 % (39.0-53.0) Mean Corpuscular Volume 84 fL (79-100) Mean Corpuscular Hemoglobin 28 pg (25-35) Mean Corpuscular Hemoglobin Concent 33 g/dL (31-37) Red Cell Distribution Width 16.6 % (11.5-14.5) Platelet Count 346 x10^3/uL (140-400) Neutrophils (%) (Auto) 80 % (31-73) Lymphocytes (%) (Auto) 12 % (24-48) Monocytes (%) (Auto) 7 % (0-9) Eosinophils (%) (Auto) 1 % (0-3) Basophils (%) (Auto) 1 % (0-3) Neutrophils # (Auto) 10.0 x10^3uL (1.8-7.7) Lymphocytes # (Auto) 1.5 x10^3/uL (1.0-4.8) Monocytes # (Auto) 0.8 x10^3/uL (0.0-1.1) Eosinophils # (Auto) 0.2 x10^3/uL (0.0-0.7) Basophils # (Auto) 0.1 x10^3/uL (0.0-0.2) Sodium Level 141 mmol/L (136-145) Potassium Level 3.7 mmol/L (3.5-5.1) Chloride Level 102 mmol/L (98-107) Carbon Dioxide Level 36 mmol/L (21-32) Anion Gap 3 (6-14) Blood Urea Nitrogen 26 mg/dL (8-26) Creatinine 1.4 mg/dL (0.7-1.3) Estimated GFR (Cockcroft-Gault) 48.1 Glucose Level 104 mg/dL (70-99) Calcium Level 8.9 mg/dL (8.5-10.1) Total Bilirubin 0.1 mg/dL (0.2-1.0) Direct Bilirubin 0.1 mg/dL (0.0-0.2) Aspartate Amino Transf (AST/SGOT) 19 U/L (15-37) Alanine Aminotransferase (ALT/SGPT) 16 U/L (16-63) Alkaline Phosphatase 88 U/L (46-116) Troponin I Quantitative < 0.017 ng/mL (0.000-0.055) OF-Hwj-K-Type Natriuretic Peptide 1276 pg/mL (0-449) Total Protein 6.7 g/dL (6.4-8.2) Albumin 1.6 g/dL (3.4-5.0) Laboratory Tests Test 04/17/17 04:30 White Blood Count 12.5 x10^3/uL (4.0-11.0) Red Blood Count 2.72 x10^6/uL (4.30-5.70) Hemoglobin 7.5 g/dL (13.0-17.5) Hematocrit 22.8 % (39.0-53.0) Mean Corpuscular Volume 84 fL (79-100) Mean Corpuscular Hemoglobin 28 pg (25-35) Mean Corpuscular Hemoglobin Concent 33 g/dL (31-37) Red Cell Distribution Width 16.6 % (11.5-14.5) Platelet Count 346 x10^3/uL (140-400) Neutrophils (%) (Auto) 80 % (31-73) Lymphocytes (%) (Auto) 12 % (24-48) Monocytes (%) (Auto) 7 % (0-9) Eosinophils (%) (Auto) 1 % (0-3) Basophils (%) (Auto) 1 % (0-3) Neutrophils # (Auto) 10.0 x10^3uL (1.8-7.7) Lymphocytes # (Auto) 1.5 x10^3/uL (1.0-4.8) Monocytes # (Auto) 0.8 x10^3/uL (0.0-1.1) Eosinophils # (Auto) 0.2 x10^3/uL (0.0-0.7) Basophils # (Auto) 0.1 x10^3/uL (0.0-0.2) Sodium Level 141 mmol/L (136-145) Potassium Level 3.7 mmol/L (3.5-5.1) Chloride Level 102 mmol/L (98-107) Carbon Dioxide Level 36 mmol/L (21-32) Anion Gap 3 (6-14) Blood Urea Nitrogen 26 mg/dL (8-26) Creatinine 1.4 mg/dL (0.7-1.3) Estimated GFR (Cockcroft-Gault) 48.1 Glucose Level 104 mg/dL (70-99) Calcium Level 8.9 mg/dL (8.5-10.1) Total Bilirubin 0.1 mg/dL (0.2-1.0) Direct Bilirubin 0.1 mg/dL (0.0-0.2) Aspartate Amino Transf (AST/SGOT) 19 U/L (15-37) Alanine Aminotransferase (ALT/SGPT) 16 U/L (16-63) Alkaline Phosphatase 88 U/L (46-116) Troponin I Quantitative < 0.017 ng/mL (0.000-0.055) LI-Ypd-W-Type Natriuretic Peptide 1276 pg/mL (0-449) Total Protein 6.7 g/dL (6.4-8.2) Albumin 1.6 g/dL (3.4-5.0) VTE Prophylaxis Ordered VTE Prophylaxis Devices: Yes VTE Pharmacological Prophylaxi: Yes Assessment/Plan Assessment/Plan Pt is a 87yo CM admitted for COPD Exacerbation 1)COPD Exacerbation- started on Prednisone in the ER, will continue. Will also start pt on Levaquin. 2)Acute on chronic anemia- no active bleeding. FOBT pending. Will continue Ferrous Sulfate 3)PEM- severe 4)Pressure ulcer- wound care following 5)HTN- well controlled. Will resume pt's Metoprolol 50mg BID, Lasix 20mg and Lisinopril 2.5m 6)BPH- will continue pt's Finasteride and Flomax 7)HLD- will continue pt's Atorvastatin 8)Acute on chronic kidney disease- likely 2/2 dehydration. Will CTM ÁNGEL MOYA MD Apr 17, 2017 09:37
[2017-04-17] MEDS ORDERED: ALBUTEROL SULFATE 2.5 MG/3 ML NEBU. NEB PRN (09:45)
[2017-04-17 10:01] VITALS: BP 111/44
--- NOTE | 2017-04-17 10:11 | EKG ---
[facility] [address] [place] [address] Test Date: 2017-04-17 Test Time: 03:56:49 Pat Name: BIJAL OLOSN Department: Room: 536 1 Gender: M Cardiopulmonary Technologist: Kathie : 1930 Requested By: Iveth ORLANDO Order Number: [id number] Reading MD: Osiel Rooney Measurements Intervals [place] Rate: 84 P: [place]: QRS: 98 QRSD: 100 T: 1 QT: 388 QTc: 462 Interpretive Statements ATRIAL FIBRILLATION RIGHTWARD AXIS QRS(T) CONTOUR ABNORMALITY CONSIDER ANTEROSEPTAL MYOCARDIAL DAMAGE T ABNORMALITY IN INFERIOR LEADS RI6.01 Unconfirmed report Electronically Signed On 05-04-2017 13:28:21 CDT by Osiel Rooney
[2017-04-17] MEDS: METOPROLOL TART IMMED RELEASE 50 MG TABLET. PO SCH ×2 (10:30→20:40)
[2017-04-17] MEDS: FERROUS SULFATE 325 MG TABLET. PO SCH (10:30)
[2017-04-17] MEDS: LISINOPRIL 2.5 MG TABLET PO SCH (10:30)
[2017-04-17] MEDS: ASPIRIN 325 MG TABLET PO SCH (11:19)
[2017-04-17] MEDS: FINASTERIDE 5 MG TABLET. PO SCH (11:19)
[2017-04-17] MEDS: FLUTICASONE 50MCG/NASAL SPRAY 16GM BOTTLE. NS SCH (11:20)
[2017-04-17] MEDS: BUDESONIDE 0.5 MG/2 ML NEBU. NEB SCH ×2 (11:47→21:01)
[2017-04-17] MEDS: IPRATRPIUM/ALBUTEROL 0.5/2.5MG 3 ML NEBU. NEB SCH ×3 (11:48→21:04)
[2017-04-17] MEDS: ENOXAPARIN 40 MG/0.4 ML SYRINGE. SQ SCH (12:00)
[2017-04-17 15:00] VITALS: BP 98/41
[2017-04-17] MEDS: POLYETHYLENE GLYCOL 3350 17 GM PACKET. PO PRN (17:44)
[2017-04-17] MEDS: HYDROcodone/APAP 5/325MG 1 TAB TABLET PO PRN ×2 (17:54→20:39)
[2017-04-17 19:00] VITALS: BP 96/39
[2017-04-17] MEDS: ATORVASTATIN CALCIUM 10 MG TABLET. PO SCH (20:39)
[2017-04-17] MEDS ORDERED: NON FORMULARY ITEM (Budesonide/Formoterol Fumarate (Symbicort 160-4.5 Mcg Inhaler) 2 PUFF) IH SCH (21:00)
[2017-04-17 23:00] VITALS: BP 105/45
[2017-04-18 03:05] VITALS: BP 139/80
[2017-04-18] MEDS: HYDROcodone/APAP 5/325MG 1 TAB TABLET PO PRN ×3 (05:28→20:56)
[2017-04-18 07:00] VITALS: BP 79/35
--- NOTE | 2017-04-18 08:57 | PDOC ---
PROGRESS NOTES Subjective He is hypotensive this am but sitting up and not dizzy, alert but he does not remember coming to the hospital, he gives a good history of the past month though, he has not been eating well and has lost a lot of weight Objective Afebrile BP: 79/60 General: sitting up, alert, tremor present Heart: RRR Lungs: scattered rhonchi Abd: soft, thin Ext: no edema Skin: sacral pressure ulcer Vital Signs Vital Signs Date Time Temp Pulse Resp B/P (MAP) Pulse Ox O2 Delivery O2 Flow Rate FiO2 04/18/17 06:28 18 95 Nasal Cannula 4.0 04/18/17 03:05 98.2 78 139/80 (99) 98.2 Assessment and Plan Problems Medical Problems: (1) Anemia, on iron, no evidence of active bleeding, likely nutritional Status: Acute (2) COPD exacerbation - responding to treatment Status: Acute (3) Decubital ulcer - from severe protein malnutrition, nutrition consult in place, wound care following Status: Acute (4) CHF, acute on chronic systolic, on metoprolol and lisinopril Status: Acute (5)hypotension - fluid bolus, no evidence of sepsis Status: Acute Problems: Meera RODRIGUEZ MD Apr 18, 2017 08:57
[2017-04-18] MEDS: METOPROLOL TART IMMED RELEASE 50 MG TABLET. PO SCH ×2 (09:00→20:55)
[2017-04-18] MEDS: LISINOPRIL 2.5 MG TABLET PO SCH (09:00)
[2017-04-18] MEDS ORDERED: IV NORMAL SALINE 500ML BAG 250 ML IV ONE (09:00)
[2017-04-18] MEDS: IPRATRPIUM/ALBUTEROL 0.5/2.5MG 3 ML NEBU. NEB SCH ×4 (09:01→20:26)
[2017-04-18] MEDS: BUDESONIDE 0.5 MG/2 ML NEBU. NEB SCH ×2 (09:01→20:26)
[2017-04-18] MEDS: FERROUS SULFATE 325 MG TABLET. PO SCH (09:26)
[2017-04-18] MEDS: ASPIRIN 325 MG TABLET PO SCH (09:26)
[2017-04-18] MEDS: predniSONE 20 MG TABLET PO SCH (09:29)
[2017-04-18] MEDS: FLUTICASONE 50MCG/NASAL SPRAY 16GM BOTTLE. NS SCH (10:49)
[2017-04-18] MEDS: FINASTERIDE 5 MG TABLET. PO SCH (10:49)
[2017-04-18 11:00] VITALS: BP 107/46
[2017-04-18] MEDS: ENOXAPARIN 40 MG/0.4 ML SYRINGE. SQ SCH (12:00)
[2017-04-18 15:00] VITALS: BP 109/43
[2017-04-18 19:00] VITALS: BP 117/49
[2017-04-18] MEDS: ALPRAZolam 0.5 MG TABLET PO PRN (20:55)
[2017-04-18] MEDS: ATORVASTATIN CALCIUM 10 MG TABLET. PO SCH (20:55)
[2017-04-18 23:00] VITALS: BP 108/45
[2017-04-19 03:00] VITALS: BP 114/50
[2017-04-19 06:15] LABS: BASO % 0 % (0-3); EOS % 0 % (0-3); HEMOGLOBIN 7.1 g/dL (13.0-17.5); LYMPH # 0.6 x10^3/uL (1.0-4.8); LYMPH % 7 % (24-48); MEAN CORPUSCULAR HEMOGLOBIN 28 pg (25-35); MEAN CORPUSCULAR HGB CONC 34 g/dL (31-37); MEAN CORPUSCULAR VOLUME 81 fL (79-100); MONO % 4 % (0-9); NEUT % 89 % (31-73); PLATELET COUNT 393 x10^3/uL (140-400); RED BLOOD COUNT 2.57 x10^6/uL (4.30-5.70); RED CELL DISTRIBUTION WIDTH 16.4 % (11.5-14.5); WHITE BLOOD COUNT 8.6 x10^3/uL (4.0-11.0)
[2017-04-19 06:23] LABS: HEMATOCRIT 20.9 % (39.0-53.0)
[2017-04-19 06:32] LABS: CALCIUM 8.9 mg/dL (8.5-10.1); CREATININE 1.9 mg/dL (0.7-1.3); GFR 33.8; POTASSIUM 4.3 mmol/L (3.5-5.1)
[2017-04-19 07:00] VITALS: BP 96/47
[2017-04-19 07:24] LABS: PLT ESTIMATE ADEQUATE (ADEQUATE)
[2017-04-19] MEDS: IPRATRPIUM/ALBUTEROL 0.5/2.5MG 3 ML NEBU. NEB SCH ×4 (07:39→20:04)
[2017-04-19] MEDS: BUDESONIDE 0.5 MG/2 ML NEBU. NEB SCH ×2 (07:39→20:04)
[2017-04-19] MEDS: FERROUS SULFATE 325 MG TABLET. PO SCH (08:24)
[2017-04-19] MEDS: ASPIRIN 325 MG TABLET PO SCH (08:25)
[2017-04-19] MEDS: FLUTICASONE 50MCG/NASAL SPRAY 16GM BOTTLE. NS SCH (08:25)
[2017-04-19] MEDS: METOPROLOL TART IMMED RELEASE 50 MG TABLET. PO SCH ×2 (08:26→20:52)
[2017-04-19] MEDS: LISINOPRIL 2.5 MG TABLET PO SCH (08:27)
[2017-04-19] MEDS: predniSONE 20 MG TABLET PO SCH (08:27)
[2017-04-19] MEDS: FINASTERIDE 5 MG TABLET. PO SCH (08:27)
[2017-04-19] MEDS: HYDROcodone/APAP 5/325MG 1 TAB TABLET PO PRN ×2 (10:42→20:52)
[2017-04-19 11:00] VITALS: BP 101/35
[2017-04-19] MEDS: ENOXAPARIN 40 MG/0.4 ML SYRINGE. SQ SCH (12:00)
[2017-04-19 15:00] VITALS: BP 96/39
[2017-04-19] MEDS: ALPRAZolam 0.5 MG TABLET PO PRN ×2 (15:46→20:51)
--- NOTE | 2017-04-19 18:22 | PDOC ---
PROGRESS NOTES Subjective Breathing better today, appetite better, alert, interacting well with staff Objective Afebrile General: mod respiratory distress. om O2 humidified Heart: RRR Lungs: right sided expiratory wheezes, loose cough Abd: soft and non tender Ext: no edema or clubbing Skin: sacral ulcer POA noted, photo in chart Vital Signs Vital Signs Date Time Temp Pulse Resp B/P (MAP) Pulse Ox O2 Delivery O2 Flow Rate FiO2 04/19/17 16:06 Nasal Cannula 4.0 04/19/17 15:00 97.9 78 18 96/39 (58) 96 97.9 I & O Intake and Output 04/20/17 07:00 Intake Total 350 ml Output Total 350 ml Balance 0 ml Intake Oral 350 ml Output Urine Total 350 ml # Voids 1 Assessment and Plan (1) Anemia - worsening, on iron, no evidence of active bleeding, likely nutritional Status: Acute (2) COPD exacerbation - responding to treatment Status: Acute (3) Decubital ulcer - from severe protein malnutrition, nutrition consult in place, wound care following Status: Acute (4) CHF, acute on chronic systolic, on metoprolol and lisinopril Status: Acute (5)hypotension - fluid bolus, no evidence of sepsis Problems: Nutrition Consultation Dietary Evaluation: Recommendations by RD: Increase Calorie Intake, Protein supplementation Comments: ensure added tid REC mvi q day, vit c to aid in wound healing [facility] Real notified Expected Outcomes/Goals: to meet > 75% est nutr needs Malnutrition Findings: Body Fat Depletion (Non Severe: Mild Depletion Weight Status: Underweight Meera RODRIGUEZ MD Apr 19, 2017 18:22
[2017-04-19 19:00] VITALS: BP 117/56
[2017-04-19] MEDS: ATORVASTATIN CALCIUM 10 MG TABLET. PO SCH (20:52)
[2017-04-19 23:00] VITALS: BP 121/51
[2017-04-20] MEDS: ALPRAZolam 0.5 MG TABLET PO PRN ×2 (02:48→13:57)
[2017-04-20] MEDS: HYDROcodone/APAP 5/325MG 1 TAB TABLET PO PRN ×2 (02:49→13:57)
[2017-04-20 03:26] VITALS: BP 116/63
[2017-04-20 05:51] LABS: BASO % 0 % (0-3); EOS % 0 % (0-3); LYMPH # 0.9 x10^3/uL (1.0-4.8); LYMPH % 9 % (24-48); MEAN CORPUSCULAR HEMOGLOBIN 28 pg (25-35); MEAN CORPUSCULAR HGB CONC 34 g/dL (31-37); MEAN CORPUSCULAR VOLUME 81 fL (79-100); MONO % 8 % (0-9); NEUT % 83 % (31-73); PLATELET COUNT 378 x10^3/uL (140-400); RED BLOOD COUNT 2.53 x10^6/uL (4.30-5.70); RED CELL DISTRIBUTION WIDTH 16.2 % (11.5-14.5); WHITE BLOOD COUNT 9.4 x10^3/uL (4.0-11.0)
[2017-04-20 06:05] LABS: HEMATOCRIT 20.5 % (39.0-53.0)
[2017-04-20 06:16] LABS: CALCIUM 8.7 mg/dL (8.5-10.1); CREATININE 1.7 mg/dL (0.7-1.3); GFR 38.4; POTASSIUM 4.2 mmol/L (3.5-5.1)
[2017-04-20 06:19] LABS: % SAT IRON 31 % (15-34); IRON,SERUM 41 ug/dL (65-175)
[2017-04-20 07:00] VITALS: BP 104/46
[2017-04-20] MEDS: IPRATRPIUM/ALBUTEROL 0.5/2.5MG 3 ML NEBU. NEB SCH ×4 (07:17→19:45)
[2017-04-20] MEDS: BUDESONIDE 0.5 MG/2 ML NEBU. NEB SCH ×2 (07:17→19:46)
[2017-04-20] MEDS: OMEGA-3 FATTY ACIDS/FISH OIL 1,000 MG CAPSULE. PO SCH (08:34)
[2017-04-20] MEDS: ASPIRIN 325 MG TABLET PO SCH (08:34)
[2017-04-20] MEDS: MULTIVITAMIN I-VITE TABLET. PO SCH (08:34)
[2017-04-20] MEDS: FERROUS SULFATE 325 MG TABLET. PO SCH (08:34)
[2017-04-20] MEDS: POLYETHYLENE GLYCOL 3350 17 GM PACKET. PO PRN (08:35)
[2017-04-20] MEDS: FINASTERIDE 5 MG TABLET. PO SCH (08:35)
[2017-04-20] MEDS: FLUTICASONE 50MCG/NASAL SPRAY 16GM BOTTLE. NS SCH (08:35)
[2017-04-20] MEDS: MULTIVITAMIN with MINERAL TABLET. PO SCH (08:35)
[2017-04-20] MEDS: predniSONE 20 MG TABLET PO SCH (08:35)
[2017-04-20] MEDS: METOPROLOL TART IMMED RELEASE 50 MG TABLET. PO SCH ×2 (08:41→20:42)
[2017-04-20] MEDS: LISINOPRIL 2.5 MG TABLET PO SCH (08:42)
[2017-04-20 11:00] VITALS: BP 91/41
[2017-04-20] MEDS: ENOXAPARIN 40 MG/0.4 ML SYRINGE. SQ SCH (12:00)
[2017-04-20 15:00] VITALS: BP 103/48
--- NOTE | 2017-04-20 17:37 | PDOC ---
PROGRESS NOTES Subjective He is determined to go home with [facility] and not SNU. More anemic today with Hgb of 7, no Hemoccult results, no evidence of bleeding but he is iron deficient, he is not interested in colonoscopy, EGD. Still SOA but not active and breathing baseline at rest. Urinating well, taking po, eating meals but needs to rest during meals, still coughing Objective Afebrile BP: better General: LE leg movement Heart: RRR Lungs: loss of supraclavicular fat, loose productive cough, diminished breath sounds Abd: soft, non tender, bowel sounds present Ext: ne edema but thin Hgb: 7.0 Creat: 1.7 Vital Signs Vital Signs Date Time Temp Pulse Resp B/P (MAP) Pulse Ox O2 Delivery O2 Flow Rate FiO2 04/20/17 15:02 97 Nasal Cannula 4.0 04/20/17 15:00 97.7 100 18 103/48 (66) 97.7 Assessment and Plan (1) Anemia - iron low, worsening, on iron supplement, no evidence of active bleeding, likely nutritional, declines endoscopy, monitor and transfuse if drops below 7.0. Status: Acute (2) COPD exacerbation - responding slowly to treatment Status: Acute (3) Decubital ulcer - from severe protein malnutrition, nutrition consult in place, wound care following Status: Acute (4) CHF, acute on chronic systolic, on metoprolol and lisinopril Status: Acute (5)hypotension - fluid bolus, no evidence of sepsis (6) deconditioning - not interested in SNU but agreeable to home health (7) CKD stage 3, stable, monitoring Problems: Nutrition Consultation Dietary Evaluation: Recommendations by RD: Increase Calorie Intake, Protein supplementation Comments: ensure added tid REC mvi q day, vit c to aid in wound healing per protocal- nurse Addie notified Expected Outcomes/Goals: to meet > 75% est nutr needs Malnutrition Findings: Body Fat Depletion (Non Severe: Mild Depletion Weight Status: Underweight Meera RODRIGUEZ MD Apr 20, 2017 17:37
[2017-04-20 19:00] VITALS: BP 98/38
[2017-04-20] MEDS: ATORVASTATIN CALCIUM 10 MG TABLET. PO SCH (20:41)
[2017-04-20 23:00] VITALS: BP 104/51
[2017-04-21] VITALS (16 sets, daily range): BP systolic 106–144; BP diastolic 42–71
[2017-04-21] MEDS: HYDROcodone/APAP 5/325MG 1 TAB TABLET PO PRN ×3 (05:07→20:26)
[2017-04-21 05:27] LABS: BASO % 0 % (0-3); EOS % 0 % (0-3); LYMPH # 1.2 x10^3/uL (1.0-4.8); LYMPH % 11 % (24-48); MEAN CORPUSCULAR HEMOGLOBIN 27 pg (25-35); MEAN CORPUSCULAR HGB CONC 33 g/dL (31-37); MEAN CORPUSCULAR VOLUME 82 fL (79-100); MONO % 9 % (0-9); NEUT % 79 % (31-73); PLATELET COUNT 356 x10^3/uL (140-400); RED BLOOD COUNT 2.54 x10^6/uL (4.30-5.70); WHITE BLOOD COUNT 11.2 x10^3/uL (4.0-11.0)
[2017-04-21 05:29] LABS: HEMATOCRIT 20.8 % (39.0-53.0); HEMOGLOBIN 6.8 g/dL (13.0-17.5)
[2017-04-21 05:50] LABS: CREATININE 1.3 mg/dL (0.7-1.3); GFR 52.3; POTASSIUM 4.5 mmol/L (3.5-5.1)
[2017-04-21] MEDS: IPRATRPIUM/ALBUTEROL 0.5/2.5MG 3 ML NEBU. NEB SCH ×4 (07:55→19:44)
[2017-04-21] MEDS: BUDESONIDE 0.5 MG/2 ML NEBU. NEB SCH ×2 (07:58→19:44)
[2017-04-21] MEDS: MULTIVITAMIN with MINERAL TABLET. PO SCH (08:36)
[2017-04-21] MEDS: OMEGA-3 FATTY ACIDS/FISH OIL 1,000 MG CAPSULE. PO SCH (08:36)
[2017-04-21] MEDS: ASPIRIN 325 MG TABLET PO SCH (08:36)
[2017-04-21] MEDS: MULTIVITAMIN I-VITE TABLET. PO SCH (08:36)
[2017-04-21] MEDS: predniSONE 20 MG TABLET PO SCH (08:36)
[2017-04-21] MEDS: LISINOPRIL 2.5 MG TABLET PO SCH (08:36)
[2017-04-21] MEDS: POLYETHYLENE GLYCOL 3350 17 GM PACKET. PO PRN (08:36)
[2017-04-21] MEDS: METOPROLOL TART IMMED RELEASE 50 MG TABLET. PO SCH ×2 (08:37→20:25)
[2017-04-21] MEDS: FLUTICASONE 50MCG/NASAL SPRAY 16GM BOTTLE. NS SCH (08:37)
[2017-04-21] MEDS: FINASTERIDE 5 MG TABLET. PO SCH (08:37)
[2017-04-21] MEDS: FERROUS SULFATE 325 MG TABLET. PO SCH (08:37)
[2017-04-21] MEDS ORDERED: FUROSEMIDE 20 MG/2 ML VIAL. IV PRN (09:00)
[2017-04-21] MEDS ORDERED: ACETAMINOPHEN 325 MG TABLET. PO PRN (09:00)
--- NOTE | 2017-04-21 09:24 | PDOC ---
PROGRESS NOTES Subjective Patient has not how bowel movement since admission. Hasn't noticed any blood loss. Has not ambulated much, strength and conditioning poor but still declining SNF. Still has shaking tremor R leg, denies GERD symptoms or other new complaints. Objective Afebrile BP: 136/60 General: Awake and alert, oriented Heart: RRR Lungs: Clear anteriorly, cough with forced expiration minimally productive. Abd: Soft non tender Ext: No edema, cyanosis or clubbing WBC: 11.2 Hgb: 6.8 Creat: 1.3 Vital Signs Vital Signs Date Time Temp Pulse Resp B/P (MAP) Pulse Ox O2 Delivery O2 Flow Rate FiO2 04/21/17 08:37 94 144/57 04/21/17 08:24 Nasal Cannula 4.0 04/21/17 05:07 96 04/21/17 03:00 97.7 18 97.7 Assessment and Plan Problems Medical Problems: (1) Anemia Status: Acute (2) COPD exacerbation Status: Acute (3) Decubital ulcer Status: Acute (4) Tobacco abuse Status: Acute (5) Tobacco abuse counseling Status: Acute Assessment and Plan (1) Anemia of iron def- worsening, on iron supplement, no evidence of active bleeding, likely nutritional, declines endoscopy, transfuse 2 units pRBC Status: Acute (2) acute COPD exacerbation - responding slowly to treatment Status: Acute (3) Decubital ulcer - from severe protein malnutrition, nutrition consult in place, wound care following Status: Acute (4) CHF, acute on chronic systolic, on metoprolol and lisinopril lasix between units of blood Status: Acute (5)hypotension - fluid bolus, no evidence of sepsis (6) deconditioning - not interested in SNU but agreeable to home health (7) CKD stage 3, stable, monitoring (8) suspect CAP pneumonia continue levaquin, follow up CXR today due to leukocytosis Problems: Nutrition Consultation Dietary Evaluation: Recommendations by RD: Increase Calorie Intake, Protein supplementation Comments: ensure added tid REC mvi q day, vit c to aid in wound healing per protocal- nurse Addie notified Expected Outcomes/Goals: to meet > 75% est nutr needs Malnutrition Findings: Body Fat Depletion (Non Severe: Mild Depletion Weight Status: Underweight Meera RODRIGUEZ MD Apr 21, 2017 09:24
[2017-04-21] MEDS: ASCORBIC ACID 500 MG TABLET PO SCH (09:54)
[2017-04-21] MEDS: ENOXAPARIN 40 MG/0.4 ML SYRINGE. SQ SCH (12:00)
--- NOTE | 2017-04-21 17:09 | RAD ---
Chest, 2 views, 04/21/2017: History: Shortness of breath, increasing white blood cell count Comparison is made to a study from 04/17/2017 as well as an exam from 12/17/2016. The heart is within normal limits in size. There is volume loss on the left with unchanged left basilar pleural-parenchymal opacities compatible with scarring. There are prominent pulmonary markings in the remainder of both lungs probably due to scars. There is hyperexpansion of the lungs compatible with emphysema. No new pulmonary abnormality is seen. No definite pleural fluid is identified. There are old rib fractures on the left. IMPRESSION: 1. Emphysema with parenchymal scarring. 2. Previous left thoracotomy with left basilar pleural-parenchymal scarring. 3. No new abnormality is detected.
[2017-04-21] MEDS ORDERED: BISACODYL 5 MG TABLET.DR. PO PRN (17:15)
[2017-04-21] MEDS: POLYETHYLENE GLYCOL 3350 17 GM PACKET. PO SCH (17:28)
[2017-04-21] MEDS: ATORVASTATIN CALCIUM 10 MG TABLET. PO SCH (20:26)
[2017-04-22 00:15] VITALS: BP 153/70
[2017-04-22 00:40] VITALS: BP 145/67
[2017-04-22 01:40] VITALS: BP 147/60
[2017-04-22 03:00] VITALS: BP 140/61
[2017-04-22 05:29] LABS: BASO % 0 % (0-3); EOS % 0 % (0-3); HEMATOCRIT 27.6 % (39.0-53.0); HEMOGLOBIN 9.2 g/dL (13.0-17.5); LYMPH % 10 % (24-48); MEAN CORPUSCULAR HEMOGLOBIN 28 pg (25-35); MEAN CORPUSCULAR HGB CONC 34 g/dL (31-37); MEAN CORPUSCULAR VOLUME 84 fL (79-100); MONO % 8 % (0-9); NEUT % 82 % (31-73); PLATELET COUNT 319 x10^3/uL (140-400); RED BLOOD COUNT 3.29 x10^6/uL (4.30-5.70); RED CELL DISTRIBUTION WIDTH 15.6 % (11.5-14.5); WHITE BLOOD COUNT 10.1 x10^3/uL (4.0-11.0)
[2017-04-22] MEDS: HYDROcodone/APAP 5/325MG 1 TAB TABLET PO PRN (05:45)
[2017-04-22 05:49] LABS: BLOOD UREA NITROGEN 43 mg/dL (8-26); CALCIUM 8.7 mg/dL (8.5-10.1); CARBON DIOXIDE 39 mmol/L (21-32); CHLORIDE 105 mmol/L (98-107); CREATININE 1.3 mg/dL (0.7-1.3); GFR 52.3; GLUCOSE 118 mg/dL (70-99); POTASSIUM 4.6 mmol/L (3.5-5.1); SODIUM 141 mmol/L (136-145)
[2017-04-22 07:00] VITALS: BP 127/59
[2017-04-22] MEDS: BUDESONIDE 0.5 MG/2 ML NEBU. NEB SCH (07:03)
[2017-04-22] MEDS: IPRATRPIUM/ALBUTEROL 0.5/2.5MG 3 ML NEBU. NEB SCH ×2 (07:03→10:57)
[2017-04-22] MEDS: OMEGA-3 FATTY ACIDS/FISH OIL 1,000 MG CAPSULE. PO SCH (09:00)
[2017-04-22] MEDS: POLYETHYLENE GLYCOL 3350 17 GM PACKET. PO SCH (09:00)
[2017-04-22] MEDS ORDERED: ASCORBIC ACID 500 MG TABLET PO SCH (09:00)
[2017-04-22] MEDS: LISINOPRIL 2.5 MG TABLET PO SCH (09:01)
[2017-04-22] MEDS: FERROUS SULFATE 325 MG TABLET. PO SCH (09:01)
[2017-04-22] MEDS: ASCORBIC ACID 500 MG TABLET PO SCH (09:01)
[2017-04-22] MEDS: FLUTICASONE 50MCG/NASAL SPRAY 16GM BOTTLE. NS SCH (09:02)
[2017-04-22] MEDS: FINASTERIDE 5 MG TABLET. PO SCH (09:02)
[2017-04-22] MEDS: MULTIVITAMIN I-VITE TABLET. PO SCH (09:02)
[2017-04-22] MEDS: ASPIRIN 325 MG TABLET PO SCH (09:02)
[2017-04-22] MEDS: predniSONE 20 MG TABLET PO SCH (09:02)
[2017-04-22] MEDS: METOPROLOL TART IMMED RELEASE 50 MG TABLET. PO SCH (09:02)
[2017-04-22] MEDS: MULTIVITAMIN with MINERAL TABLET. PO SCH (09:02)
[2017-04-22] MEDS ORDERED: PRED-220 PO (09:16)
[2017-04-22] MEDS ORDERED: LEVO250T25 PO (09:16)
[2017-04-22 11:00] VITALS: BP 137/56
--- NOTE | 2017-04-22 18:33 | PDOC3 ---
Discharge Summary [facility] Date of Admission: Apr 17, 2017 Discharge Date: Apr 22, 2017 Admitting Diagnosis acute COPD exacerbation, anemia, decubitus sacral pressure ulcer Problems: Final Diagnosis Problems Medical Problems: (1) Anemia Status: Acute (2) COPD exacerbation Status: Acute (3) Decubital ulcer Status: Acute (4) Tobacco abuse Status: Acute (5) Tobacco abuse counseling Status: Acute CONSULTS none Procedures transfusion 2 units p RBC Brief Hospital Course Mr. Valentin is a 87 old who presented with SOA with the [facility] course: (1) acute COPD exacerbation - responded slowly to treatment but improved to baseline and still requiring O2, prednisone 10 mg 4x3, 3x3, 2x3, 1x3 taper Status: Acute (2) Anemia of iron def- worsened despite iron supplement, no evidence of active bleeding, likely nutritional, declined endoscopy, transfused 2 units pRBC after Hgb dropped to 6.8 Status: Acute (3) Decubital ulcer - from severe protein malnutrition, nutrition consult in place, wound care following and will be followed by long-term, he is eating much better now than at admission Status: Acute (4) CHF, acute on chronic systolic, on metoprolol and lisinopril lasix 20 mg IV given between units of blood Status: Acute (5)hypotension - resolved after fluid bolus, no evidence of sepsis (6) deconditioning - not interested in SNU but agreeable to home health (7) CKD stage 3, stable, monitored but he did have a component of LAUREN from dehydration which started at admission but resolved by discharge (8) suspect CAP pneumonia continue levaquin and finish a 10 day course of treatment, follow up CXR today due to leukocytosis Patient History: Problems: Disposition home with home health, PT/OT/long-term CONDITION AT DISCHARGE: Improved, Stable Scheduled Aspirin (Aspirin), 1 TAB PO DAILY, (Reported) Atorvastatin Calcium (Atorvastatin Calcium), 1 TAB PO DAILY, (Reported) Budesonide/Formoterol Fumarate (Symbicort 160-4.5 Mcg Inhaler), 2 PUFF IH BID, ( Reported) Ergocalciferol (Vitamin D2) (Vitamin D2), 1 CAP PO WEEKLY, (Reported) Ferrous Sulfate (Feosol), 325 MG PO DAILYWBKFT Finasteride (Finasteride), 1 TAB PO DAILY, (Reported) Ipratropium/Albuterol Sulfate (Duoneb 0.5-3(2.5) Mg/3 Ml), 3 ML NEB RTQID Levofloxacin (Levaquin), 250 MG PO DAILY06 Lisinopril (Lisinopril), 1 TAB PO DAILY, (Reported) Metoprolol Tartrate (Metoprolol Tartrate), 50 TAB PO BID, (Reported) Multivits-Min/Fa/Lycopene/Lut (Centrum Silver Tablet), 1 EACH PO DAILY, ( Reported) [place]-3 Fatty Acids/Fish Oil ([place] 3 Fish Oil Softgel), 1 EACH PO DAILY, ( Reported) Prednisone (Prednisone), 10 MG PO DAILY Vit A/Vit C/Vit E/Zinc/Copper (Preservision Areds Tablet), 1 EACH PO DAILY, ( Reported) Scheduled PRN Albuterol Sulfate (Proair Hfa Inhaler), 1 PUFF INH PRN Q6HRS PRN for SHORTNESS OF BREATH, (Reported) Hydrocodone/Acetaminophen (Lortab 5-325 mg Tablet), 1 TAB PO BID PRN for PAIN, ( Reported) Miscellaneous Medications Fluticasone Propionate (Fluticasone Propionate Nasal [place]), (Reported) Discontinued Medications Ciprofloxacin Hcl (Cipro), 1 TAB PO BID Doxycycline Hyclate (Doxycycline Hyclate), 1 CAP PO BID Prednisone (Prednisone), 1 TAB PO DAILY Follow Up 2 weeks Meera RODRIGUEZ MD Apr 22, 2017 18:33
[2017-04-26] MEDS ORDERED: ERGOCALCIFEROL (VITAMIN D2) 50,000 UNIT CAPSULE. PO SCH (09:00)
== END 2017-04-22 11:30 | disposition home health service (06) | DRG 291 ==
LOC: ER 03:39 → 5 NORTH 05:52
PROVIDERS: ADMIT Family Medicine; ATTEND Family Medicine
PROC: 30233N1 Transfusion of Nonautologous Red Blood Cells into Peripheral Vein, Percutaneous Approach (ICD-10-PCS; principal; 2017-04-21)
DX: I13.0 Hypertensive heart and chronic kidney disease with heart failure and stage 1 through stage 4 chronic kidney disease, or unspecified chronic kidney disease (principal); E43 Unspecified severe protein-calorie malnutrition; J18.9 Pneumonia, unspecified organism; N17.9 Acute kidney failure, unspecified; L89.159 Pressure ulcer of sacral region, unspecified stage; I95.9 Hypotension, unspecified; J44.1 Chronic obstructive pulmonary disease with (acute) exacerbation; I50.23 Acute on chronic systolic (congestive) heart failure; I48.91 Unspecified atrial fibrillation; E86.0 Dehydration; E53.8 Deficiency of other specified B group vitamins; F32.9 Major depressive disorder, single episode, unspecified; D50.9 Iron deficiency anemia, unspecified; E78.00 Pure hypercholesterolemia, unspecified; E78.5 Hyperlipidemia, unspecified; F17.210 Nicotine dependence, cigarettes, uncomplicated; I25.10 Atherosclerotic heart disease of native coronary artery without angina pectoris; N18.3 Chronic kidney disease, stage 3 (moderate); N40.0 Benign prostatic hyperplasia without lower urinary tract symptoms; M19.90 Unspecified osteoarthritis, unspecified site; M54.5 Low back pain; Z85.118 Personal history of other malignant neoplasm of bronchus and lung; Z90.49 Acquired absence of other specified parts of digestive tract; Z82.49 Family history of ischemic heart disease and other diseases of the circulatory system; Z71.6 Tobacco abuse counseling; I25.2 Old myocardial infarction
CPT/HCPCS: 36415; 71010; 71020; 80048; 80076; 83540; 83550; 83880; 84484; 85007; 85025; 86850; 86900; 86901; 86920; 87070; 87205; 93005; 94250; 94640; 94760; 96365; J0456; J1650; J7040; J7512; J7620; J7626; P9016; 97110; 97530; 97535; 99285-25